=== PATIENT | female | born 1995 | race Caucasian/White ===

== ENCOUNTER → 2016-07-19 | Outpatient (CLI) | payer BC | END | disposition home or self-care (01) | LOC: LABWHC1 10:51 | PROVIDERS: ATTEND Psychiatry & Neurology Neurology | DX: G40.309 Generalized idiopathic epilepsy and epileptic syndromes, not intractable, without status epilepticus (principal) | CPT/HCPCS: 36415; 80175 ==

== ENCOUNTER 2016-10-18 11:21 | Inpatient (IN) | payer BC ==
[2016-10-18] MEDS ORDERED: SODIUM CHLORIDE 0.9% 500 ML IV STA (12:22)
[2016-10-18 12:47] LABS: Appearance,Urine Clear (Clear); Basophils % (A) 0 %; Bilirubin,Urine Negative (Negative); CH 32.2; CHCM 35.1; Eosinophils # (A) 0.1 k/uL (0-0.7); Eosinophils % (A) 1 %; Glucose,Urine (UA) Negative (Negative); HDW 2.66; HGB 11.9 gm/dL (11.4-16.0); Ketones,Urine Negative (Negative); Leukocyte Esterase,Urine Negative (Negative); Luc # (Auto) 0.24; Luc % (Auto) 2; Lymphocytes # (A) 2.2 k/uL (1.0-4.8); Lymphocytes % (A) 16 %; MCH 33.1 pg (25.0-35.0); MCV 92.1 fL (80.0-100.0); Mean Platelet Volume 6.8; Monocytes # (A) 0.9 k/uL (0-1.0); Monocytes % (A) 7 %; Neutrophils # (A) 10.3 k/uL (1.3-7.7); Neutrophils % (A) 75 %; Nitrite,Urine Negative (Negative); PH, Urine 7.5 (5.0-8.0); Protein,Urine Negative (Negative); RBC 3.58 m/uL (3.80-5.40); Specific Gravity,Urine 1.005 (1.001-1.035); UA Billing (MACRO vs. MICRO) CHEM; Urobilinogen,Urine <2.0 mg/dL (<2.0); WBC 13.8 k/uL (3.8-10.6); WBC (Perox) 14.17
[2016-10-18 13:07] LABS: ALT 26 U/L (9-52); AST 19 U/L (14-36); Alkaline Phosphatase 65 U/L (38-126); Anion Gap 6 mmol/L; Blood Urea Nitrogen 7 mg/dL (7-17); Calcium 9.1 mg/dL (8.4-10.2); Carbon Dioxide 19 mmol/L (22-30); Chloride 112 mmol/L (98-107); Glucose 75 mg/dL (74-99); Non-African American GFR(MDRD) >60 (>60 ml/min/1.73 sqM); Potassium 4.5 mmol/L (3.5-5.1); Sodium 137 mmol/L (137-145); Total Bilirubin 0.2 mg/dL (0.2-1.3); Total Protein 6.1 g/dL (6.3-8.2)
[2016-10-18] MEDS ORDERED: lamoTRIgine 25 MG TAB PO ONE (13:23)
[2016-10-18] MEDS ORDERED: NALOXONE 0.4 MG/ML 1 ML VIAL IV PRN (13:59)
--- NOTE | 2016-10-18 14:09 | ED ---
General Adult HPI - General Chief complaint: Seizure Stated complaint: Seizure Time Seen by Provider: 10/18/16 11:59 Source: patient, EMS, RN notes reviewed Mode of arrival: EMS Limitations: no limitations - History of Present Illness Initial comments: 21-year-old female presenting with 10 minute episode of generalized tonic- clonic seizure. This happened 30 minutes to an hour prior to arrival. Patient did fall forward striking her abdomen. She is proximally 7 months . Patient denies headache. Denies abdominal pain. Denies vaginal bleeding. She is currently taking 300 mg of Lamictal twice daily. She denies missing any doses. Denies fever or chills. Patient's reported due date is December 31. Patient states she has been seizure free for the past 3 years. - Related Data Home Medications Medication Instructions Recorded Confirmed lamoTRIgine [LaMICtal] 200 mg PO BID 12/29/15 10/18/16 Folic Acid 1 mg PO BID 10/18/16 10/18/16 Pnv,Calcium 72/Iron/Folic Acid 1 tab PO HS 10/18/16 10/18/16 [ Plus Tablet] lamoTRIgine [LaMICtal] 100 mg PO BID 10/18/16 10/18/16 Allergies Allergy/AdvReac Type Severity Reaction Status Date / Time No Known Allergies Allergy Verified 10/18/16 11:54 Review of Systems ROS Statement: Those systems with pertinent positive or pertinent negative responses have been documented in the HPI. ROS Other: All systems not noted in ROS Statement are negative. Past Medical History Past Medical History: Seizure Disorder History of Any Multi-Drug Resistant Organisms: None Reported Past Surgical History: No Surgical Hx Reported Past Anesthesia/Blood Transfusion Reactions: No Reported Reaction Past Psychological History: No Psychological Hx Reported Smoking Status: Current every day smoker Past Alcohol Use History: Occasional Past Drug Use History: None Reported - Past Family History Mother Family Medical History: Cancer General Exam Limitations: no limitations General appearance: alert, in no apparent distress Head exam: Present: atraumatic, normocephalic Eye exam: Present: normal appearance, PERRL ENT exam: Present: normal exam, mucous membranes moist Neck exam: Present: normal inspection. Absent: meningismus Respiratory exam: Present: normal lung sounds bilaterally, respiratory distress Cardiovascular Exam: Present: regular rate, normal rhythm GI/Abdominal exam: Present: soft. Absent: distended, tenderness, guarding, rebound, rigid Extremities exam: Present: normal capillary refill. Absent: pedal edema Neurological exam: Present: alert, oriented X3, CN II-XII intact. Absent: motor sensory deficit Psychiatric exam: Present: normal affect, normal mood Skin exam: Present: warm, dry Course Vital Signs 10/18/16 10/18/16 11:32 13:40 Temperature 98.3 F 98.3 F Pulse Rate 85 59 L Respiratory 16 18 Rate Blood Pressure 116/58 99/52 O2 Sat by Pulse 95 99 Oximetry - Reevaluation(s) Reevaluation #1: 10/18/16 14:06 Reevaluation the patient remains seizure free, asymptomatic. She has no complaints. Blood pressure is normal. EKG Findings - EKG Comments: EKG Findings:: Normal sinus rhythm, ventricular rate 74, MN interval 132, QRS duration 90, QTC is 452, no ST segment elevation or depression, no T-wave abnormality Medical Decision Making - Medical Decision Making 21-year-old female with known seizure disorder presents with tonic-clonic seizure. Patient is approximately 7 months she did sustain mild abdominal trauma. She has no complaint of abdominal pain at this time. No vaginal bleeding. heart tones obtained in the emergency department are normal. Case is discussed with both obstetrics and neurology. Laboratory studies are reviewed and are unremarkable including normal electrolytes. No elevation in liver enzymes, normal platelets, normal hemoglobin. Patient has no history of preeclampsia. Type and screen is pending at the time of this dictation. Lamictal level is also pending, neurology will follow-up on this. After discussion with obstetrics the patient will present to labor and delivery for a four-hour period of monitoring given her abdominal trauma. After that she will be moved to a medical bed for further neurology evaluation. Neurology recommends increasing the patient's Lamictal dose to 325 mg in the morning, 300 mg in the evening. Patient is given 1 dose of 25 mg in the emergency department. Patient will be placed in observation under internal medicine with both neurology and obstetrics on consult. - Lab Data Result diagrams: 10/18/16 12:31 10/18/16 12:31 Lab Results 10/18/16 10/18/16 10/18/16 Range/Units 12:31 12:31 12:31 WBC 13.8 H (3.8-10.6) k/uL RBC 3.58 L (3.80-5.40) m/uL Hgb 11.9 (11.4-16.0) gm/dL Hct 33.0 L (34.0-46.0) % MCV 92.1 (80.0-100.0) fL MCH 33.1 (25.0-35.0) pg MCHC 36.0 (31.0-37.0) g/dL RDW 13.0 (11.5-15.5) % Plt Count 327 (150-450) k/uL Neutrophils % 75 % Lymphocytes % 16 % Monocytes % 7 % Eosinophils % 1 % Basophils % 0 % Neutrophils # 10.3 H (1.3-7.7) k/uL Lymphocytes # 2.2 (1.0-4.8) k/uL Monocytes # 0.9 (0-1.0) k/uL Eosinophils # 0.1 (0-0.7) k/uL Basophils # 0.0 (0-0.2) k/uL Sodium 137 (137-145) mmol/L Potassium 4.5 (3.5-5.1) mmol/L Chloride 112 H (98-107) mmol/L Carbon Dioxide 19 L (22-30) mmol/L Anion Gap 6 mmol/L BUN 7 (7-17) mg/dL Creatinine 0.65 (0.52-1.04) mg/dL Est GFR (MDRD) Af Amer >60 (>60 ml/min/1.73 sqM) Est GFR (MDRD) Non-Af >60 (>60 ml/min/1.73 sqM) Glucose 75 (74-99) mg/dL Calcium 9.1 (8.4-10.2) mg/dL Total Bilirubin 0.2 (0.2-1.3) mg/dL AST 19 (14-36) U/L ALT 26 (9-52) U/L Alkaline Phosphatase 65 (38-126) U/L Total Protein 6.1 L (6.3-8.2) g/dL Albumin 3.5 (3.5-5.0) g/dL Urine Color Light Yellow Urine Appearance Clear (Clear) Urine pH 7.5 (5.0-8.0) Ur Specific [place] 1.005 (1.001-1.035) Urine Protein Negative (Negative) Urine Glucose (UA) Negative (Negative) Urine Ketones Negative (Negative) Urine Blood Negative (Negative) Urine Nitrite Negative (Negative) Urine Bilirubin Negative (Negative) Urine Urobilinogen <2.0 (<2.0) mg/dL Ur Leukocyte Esterase Negative (Negative) Disposition Clinical Impression: Generalized seizure Disposition: [facility] Condition: Stable Referrals: Kalani Givens MD [Primary Care Provider] - 1-2 days Decision to Admit Reason: Admit from EC Decision Date: 10/18/16 Decision Time: 13:00
[2016-10-18] MEDS ORDERED: lamoTRIgine 100 MG TAB PO SCH (21:00)
--- NOTE | 2016-10-18 21:01 | P.CNNES ---
History of Present Illness Consult date: 10/18/16 Reason for Consult: This patient female admitted with breakthrough seizure. History of Present Illness: This patient is a 21-year-old right-handed white female was brought into the emergency room today for breakthrough seizure. Patient is currently 7 months with her second child. She has a history of underlying seizure disorder and has been taking Lamictal at home twice a day. Patient apparently had a seizure this morning lasting 5-7 minutes in duration. She remembers sitting at the breakfast table having coffee and then only remembers seeing the EMS and ambulance personnel around her. She was brought into the emergency room for further evaluation. Patient was seen in the ER and was back to baseline by the time she was seen in the emergency room at [facility]. She was seen by Dr. Cochran in the ER who noted that she had a normal exam. She told the ER physician that she has been taking Lamictal 300 mg twice a day. On further questioning she denies missing any recent doses. She did mention that she has been missing her regular sleep pattern recently. Apparently she has been stressed with some home situation. 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 We have recommended that she should be seen by her primary care physician in terms of further evaluation whether she is capable to continue working there. Her last Lamictal level was checked in July and was slightly low at 1.9. The patient was advised in July to increase her dose of Lamictal by 25 mg in the morning dose. Patient states she does not remember getting this call in terms of increasing her dosage. For whatever reason she has only been taking 300 mg twice a day. The patient was seen in the ER today and a repeat Lamictal level was drawn. We will need to wait for the actual blood levels to come back from the laboratory. We recommended the patient to increase her limit mental dose to 325 mg in the morning and 300 mg in the evening. She was seen by PROCEDURES NURSE as she did fall onto her tummy and there was concern for any trauma. She was observed in the PROCEDURES NURSE floor and ultrasound and monitoring was all within normal. She was transferred to the medical floor late this afternoon. We have recommended the patient should remain in hospital for at least 1-2 days. She needs to be therapeutic on Lamictal before returning to work. We once again reviewed the [place] driving law and she is well aware of this stating that she cannot drive in the [facility] for appeared of 6 months following her last seizure. The patient does continue to take folic acid and her vitamins. This is her second . We will continue close monitoring of this patient during this admission. We have recommended the patient should increase her dose of Lamictal by Tuesday of this week to 325 mg twice a day. If she is still in the hospital by that time we will increase her dosage during this admission. She should follow-up in the outpatient neurology clinic for further evaluation and possible EEG. We have discussed all of these findings in detail today with the patient. She does mention she has been getting less sleep at night in the last few weeks where normally she would get 8-9 hours she is now only getting 5-6 hours of sleep. We have explained that sleep deprivation also could provoke seizure. We will continue close neurological follow-up with this patient during this admission. We'll await any further recommendations from PROCEDURES NURSE regarding her and further management. Her overall prognosis at this time remains guarded. Review of Systems Constitutional: Denies chills, Denies fever Eyes: denies blurred vision, denies pain Ears, nose, mouth and throat: Denies headache, Denies sore throat Cardiovascular: Denies chest pain, Denies shortness of breath Respiratory: Denies cough Gastrointestinal: Denies abdominal pain, Denies diarrhea, Denies nausea, Denies vomiting Genitourinary: Denies dysuria, Denies hematuria Musculoskeletal: Denies myalgias Integumentary: Denies pruritus, Denies rash Neurological: Denies numbness, Denies weakness Psychiatric: Denies anxiety, Denies depression Endocrine: Denies fatigue, Denies weight change Past Medical History Past Medical History: Seizure Disorder History of Any Multi-Drug Resistant Organisms: None Reported Past Surgical History: No Surgical Hx Reported Past Anesthesia/Blood Transfusion Reactions: No Reported Reaction Past Psychological History: No Psychological Hx Reported Smoking Status: Current every day smoker Past Alcohol Use History: Occasional Past Drug Use History: None Reported - Past Family History Mother Family Medical History: Cancer Medications and Allergies Home Medications Medication Instructions Recorded Confirmed Type lamoTRIgine [LaMICtal] 200 mg PO BID 12/29/15 10/18/16 History Folic Acid 1 mg PO BID 10/18/16 10/18/16 History Pnv,Calcium 72/Iron/Folic Acid 1 tab PO HS 10/18/16 10/18/16 History [ Plus Tablet] lamoTRIgine [LaMICtal] 100 mg PO BID 10/18/16 10/18/16 History Allergies Allergy/AdvReac Type Severity Reaction Status Date / Time No Known Allergies Allergy Verified 10/18/16 15:22 Physical Examination - Vital Signs Vital Signs: Vital Signs Temp Pulse Pulse Resp BP BP Pulse Ox 10/18/16 20:24 98.6 F 69 16 103/64 95 10/18/16 13:40 98.3 F 59 L 18 99/52 99 10/18/16 11:32 98.3 F 85 16 116/58 95 Intake and Output 10/18/16 10/18/16 10/18/16 06:59 14:59 22:59 Intake Total 250 Balance 250 Intake: IV 250 Invasive Line 1 250 Other: Weight 79.379 kg Patient Weight 10/19/16 06:59 Weight 79.379 kg - Constitutional General appearance: average body habitus, cooperative - EENT EENT: PERRL, mucous membranes moist - Respiratory Respiratory: lungs clear, normal breath sounds - Cardiovascular Cardiovascular: regular rate, normal S1, normal S2 Extremities: no peripheral edema bilaterally - Gastrointestinal Gastrointestinal: normoactive bowel sounds - Integumentary Integumentary: normal - Neurologic Cranial nerve examination: PERRL, EOMI, VFF, V1/V2/V3 grossly intact, face symmetric, tongue midline, intact gag reflex, intact corneal reflex, normal palatal elevation Speech examination: intact Sensorimotor examination: intact Detailed motor examination: grossly full strength in all extremities Motor examination - right side: 4/5: biceps, triceps, wrist flexion, wrist extension, community leader, hip flexors, knee extensors, dorsiflexion, toe extension (EHL) , plantarflexion Motor examination - left side: 4/5: biceps, triceps, wrist flexion, wrist extension, community leader, hip flexors, knee extensors, dorsiflexion, toe extension (EHL) , plantarflexion Detailed sensory examination: intact Reflex and gait examination: intact Reflexes: 1+: ankle, bicep, knee, tricep - Musculoskeletal Musculoskeletal: no pain - Psychiatric Psychiatric: mood/affect appropriate, cooperative Results - Laboratory Findings CBC and BMP: 10/18/16 12:31 10/18/16 12:31 Abnormal Lab Findings: Abnormal Labs 10/18/16 10/18/16 12:31 12:31 WBC 13.8 H RBC 3.58 L Hct 33.0 L Neutrophils # 10.3 H Chloride 112 H Carbon Dioxide 19 L Total Protein 6.1 L Assessment and Plan (1) Breakthrough seizure Status: Acute Code(s): G40.919 - EPILEPSY, UNSP, INTRACTABLE, WITHOUT STATUS EPILEPTICUS (2) Generalized tonic-clonic seizure Status: Acute Code(s): G40.409 - OTH GENERALIZED EPILEPSY, NOT INTRACTABLE, W/ O STAT EPI (3) Status: Acute Code(s): Z34.90 - ENCNTR FOR SUPRVSN OF NORMAL , UNSP, UNSP TRIMESTER (4) Sleep deprivation Status: Acute Code(s): Z72.820 - SLEEP DEPRIVATION Plan: This patient is a 21-year-old right-handed white female who is 7 months . She has a history of underlying seizure disorder and has been on Lamictal monotherapy for seizure prophylaxis. Her last Lamictal blood level was slightly subtherapeutic at 1.9 done in July. She was advised to increase her Lamictal dosage to 325 mg in the morning and 300 mg in the evening. Patient unfortunately has only been taking 300 mg twice a day. Patient had a breakthrough seizure today lasting 5-7 minutes in duration. She was brought into the emergency room and was seen by PROCEDURES NURSE. Apparently from the seizure she may have fallen onto her belly. There was no injury to the fetus. She was monitored on the PROCEDURES NURSE cartwright for several hours and then all testing came back normal in terms of fetus pliability. She was and transferred to the medical floor today. Patient is doing well this evening. We had increased heard Lamictal dose in the emergency room to 325 mg in the morning and 300 in the evening. We have recommended that the patient after 48 hours should increase her dose to 325 mg twice a day of Lamictal. The dosage of Lamictal can be increased only slowly to avoid side effects and rash. We will continue to monitor her tonight over the next 24 hours to make sure she has no further breakthrough seizures. 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 She needs to be therapeutic on her Lamictal if she is planning to return to work. Patient is advised of the [place] driving law states she cannot drive and state [facility] for 6 months following a seizure. She is aware of this restriction. We have drawn a Lamictal level this morning and have sent it for testing and will need to recheck tomorrow to see where her level comes back. She may require further adjustment depending on this blood level result. We have discussed with the patient that by Tuesday she should be on higher dose of Lamictal 325 mg twice a day. She will begin on this soon as possible and we will need to get a repeat Lamictal level next week. She will also need a follow-up in the outpatient neurology clinic in one week. Her overall prognosis at this time remains guarded. Time with Patient: Greater than 30
[2016-10-18] MEDS: DEXTROSE 5%-0.45% NACL 1,000 ML IV SCH (21:02)
[2016-10-18] MEDS: lamoTRIgine 100 MG TAB PO SCH (21:03)
--- NOTE | 2016-10-19 08:23 | P.OBCN ---
History of Present Illness Consult date: 10/18/16 Reason for consult: other (292/7 weeks seizure with abdominal trauma) Chief complaint: seizure, 29 2/7 weeks History of present illness: This is a 21 yo that presents to [facility] ED with c/o seizure, she has known seizure disorder and is currently taking lamictal 300mg bid. she has been seizure free for about 3 years now. she states she did hit her abdomen at the time of the seizure. she denies VB, LOF and notes FM. once in the ED all sx from the surgery had resolved. she is a known pt to Dr. Velasquez PMH: epilepsy PSH: none Meds Lamictal 300mg BID PNV Folic Acid OBGYN hx; 1. 2. current allergies NKDA VSS afebrile PE: gen NAD Abd gravid EXT no c/c/e labs per chart nml in nature Assessment/Plan: IUP @ 29 2/7 weeks known seizure disorder on lamictal, neuro on case curently and is adjusting medications as needed will plan on nst q shift, she did extended monitoring per protocol continue with PNV, Folic acid. thank you for the consult will follow Past Medical History Past Medical History: Seizure Disorder Additional Past Medical History / Comment(s): "30 WEEKS " History of Any Multi-Drug Resistant Organisms: None Reported Past Surgical History: No Surgical Hx Reported Past Anesthesia/Blood Transfusion Reactions: No Reported Reaction Smoking Status: Current every day smoker - Past Family History Father Family Medical History: Asthma Mother Family Medical History: Cancer Additional Family Medical History / Comment(s): BREAST CANCER Medications and Allergies Home Medications Medication Instructions Recorded Confirmed Type lamoTRIgine [LaMICtal] 200 mg PO BID 12/29/15 10/18/16 History Folic Acid 1 mg PO BID 10/18/16 10/18/16 History Pnv,Calcium 72/Iron/Folic Acid 1 tab PO HS 10/18/16 10/18/16 History [ Plus Tablet] lamoTRIgine [LaMICtal] 100 mg PO BID 10/18/16 10/18/16 History Allergies Allergy/AdvReac Type Severity Reaction Status Date / Time No Known Allergies Allergy Verified 10/18/16 15:22 Exam Osteopathic Statement: *. No significant issues noted on an osteopathic structural exam other than those noted in the History and Physical/Consult. - Vital Signs Vital signs: Vital Signs Temp Pulse Pulse Resp BP BP Pulse Ox 10/19/16 07:00 99 F 71 14 102/57 99 10/18/16 23:00 97.9 F 73 16 115/68 97 10/18/16 20:24 98.6 F 69 16 103/64 95 10/18/16 13:40 98.3 F 59 L 18 99/52 99 10/18/16 11:32 98.3 F 85 16 116/58 95 Intake and Output 10/18/16 10/19/16 10/19/16 22:59 06:59 14:59 Other: # Voids 2 Results Result Diagrams: 10/18/16 12:31 10/18/16 12:31 Abnormal Lab Results - Last 24 Hours (Table) 10/18/16 10/18/16 Range/Units 12:31 12:31 WBC 13.8 H (3.8-10.6) k/uL RBC 3.58 L (3.80-5.40) m/uL Hct 33.0 L (34.0-46.0) % Neutrophils # 10.3 H (1.3-7.7) k/uL Chloride 112 H (98-107) mmol/L Carbon Dioxide 19 L (22-30) mmol/L Total Protein 6.1 L (6.3-8.2) g/dL
[2016-10-19] MEDS: lamoTRIgine 25 MG TAB PO SCH (08:32)
[2016-10-19] MEDS: lamoTRIgine 100 MG TAB PO SCH ×2 (08:33→20:29)
--- NOTE | 2016-10-19 12:07 | P.HPIM ---
History of Present Illness H&P Date: 10/19/16 Chief Complaint: seizure seizure This is a 21-year-old, 7 month , female who presented to the emergency room with generalized tonic-clonic seizure. Patient is known to have underlying seizure disorder and has been taking Lamictal as prescribed by her neurologist. Apparently her Lamictal dose was increased recently but unfortunately patient did not increase her dose as directed. Her recent Lamictal level was below therapeutic range. She was doing fairly well up until yesterday when she had a generalized tonic-clonic seizure and presented to the emergency room 30 minutes after. Patient said that she does not recall what happened and next thing she knows that she was in the emergency room. Apparently she had the fall forward and landed on her abdomen. She was evaluated in the emergency room by gynecology and currently admitted to the hospital. Lamictal dose was increased. Lamictal level this morning was within therapeutic range. Review of Systems Review of system: 14 points review of systems were obtained and were negative except to what were mentioned in the HPI. Past Medical History Past Medical History: Seizure Disorder Additional Past Medical History / Comment(s): "30 WEEKS " History of Any Multi-Drug Resistant Organisms: None Reported Past Surgical History: No Surgical Hx Reported Past Anesthesia/Blood Transfusion Reactions: No Reported Reaction Smoking Status: Current every day smoker - Past Family History Father Family Medical History: Asthma Mother Family Medical History: Cancer Additional Family Medical History / Comment(s): BREAST CANCER Medications and Allergies Home Medications Medication Instructions Recorded Confirmed Type lamoTRIgine [LaMICtal] 200 mg PO BID 12/29/15 10/18/16 History Folic Acid 1 mg PO BID 10/18/16 10/18/16 History Pnv,Calcium 72/Iron/Folic Acid 1 tab PO HS 10/18/16 10/18/16 History [ Plus Tablet] lamoTRIgine [LaMICtal] 100 mg PO BID 10/18/16 10/18/16 History Allergies Allergy/AdvReac Type Severity Reaction Status Date / Time No Known Allergies Allergy Verified 10/18/16 15:22 Physical Exam Vitals: Vital Signs Temp Pulse Pulse Resp BP BP Pulse Ox 10/19/16 07:00 99 F 71 14 102/57 99 10/18/16 23:00 97.9 F 73 16 115/68 97 10/18/16 20:24 98.6 F 69 16 103/64 95 10/18/16 13:40 98.3 F 59 L 18 99/52 99 Intake and Output 10/18/16 10/19/16 10/19/16 22:59 06:59 14:59 Other: # Voids 2 General: The patient is awake and alert, in no distress Eye: there is normal conjunctiva bilaterally. Neck: The neck is supple, there is no JVD. Cardiovascular: Normal S1-S2, no S3-S4, no murmurs. Respiratory: Lungs clear to auscultation bilaterally Gastrointestinal: Abdomen is soft, nontender. noted Musculoskeletal: There is no pedal edema. Neurological:. Speech is normal. Skin: Skin is warm and dry Results CBC & Chem 7: 10/18/16 12:31 10/18/16 12:31 Labs: Abnormal Lab Results - Last 24 Hours (Table) 10/18/16 10/18/16 Range/Units 12:31 12:31 WBC 13.8 H (3.8-10.6) k/uL RBC 3.58 L (3.80-5.40) m/uL Hct 33.0 L (34.0-46.0) % Neutrophils # 10.3 H (1.3-7.7) k/uL Chloride 112 H (98-107) mmol/L Carbon Dioxide 19 L (22-30) mmol/L Total Protein 6.1 L (6.3-8.2) g/dL Thrombosis Risk Factor Assmnt - Choose All That Apply Any of the Below Risk Factors Present?: Yes Each Factor Represents 1 point: or Other Risk Factors: No Other congenital or acquired thrombophilia - If yes, enter type in comment: No Thrombosis Risk Factor Assessment Total Risk Factor Score: 1 Thrombosis Risk Factor Assessment Level: Low Risk Assessment and Plan Plan: 1. Generalized tonic-clonic seizure 2. Underlying seizure disorder 3. This is a 21-year-old female, approximately 7 month , who presented to the hospital with seizure. Procedure was attributed to subtherapeutic; dose. Patient was seen and evaluated by gynecology and neurology. Lamictal level was increased. Morning Lamictal level were within therapeutic range today. We will continue to monitor closely. Awaiting neurology clearance for discharge possibly tomorrow.
[2016-10-19] MEDS: DEXTROSE 5%-0.45% NACL 1,000 ML IV SCH (17:55)
--- NOTE | 2016-10-19 18:17 | P.PN ---
Subjective This patient is a 21-year-old female with known history of underlying seizure disorder. She is currently 30 weeks and had a breakthrough seizure yesterday. Apparently she was unresponsive and had some generalized tonic- clonic events which are noted by her grandmother at home. She was only admitted to hospital for further evaluation. She was placed on a higher dose of Lamictal as her primary anticonvulsant medication for seizure management. Her Lamictal blood level was drawn yesterday and was reviewed today. Her Lamictal level has come back therapeutic at 3.4. Patient has been started on Lamictal 325 mg in the morning and 300 mg in the evening. A repeat Lamictal level was drawn this morning. We will await those results for tomorrow morning. If she remains therapeutic she may be considered for discharge to home. We have discussed the results of her Lamictal level today with the patient. We suggest she follow-up with her [employer] physician in regards to her and whether she can return to work. She should continue on the higher dose of Lamictal as outlined above. She is to take 325 mg Lamictal in the morning and 300 mg of Lamictal in the evening. She is to follow-up in the outpatient neurology clinic as scheduled next week. We will continue close neurological follow-up of the patient during this admission. Patient was seen by [employer] today. Their recommendations have been noted. Objective - Vital Signs Vital signs: Vital Signs Temp 99.4 F 10/19/16 15:00 Pulse 84 10/19/16 15:00 Resp 16 10/19/16 15:00 BP 119/68 10/19/16 15:00 Pulse Ox 98 10/19/16 15:00 Intake & Output 10/18/16 10/19/16 10/19/16 18:59 06:59 18:59 Intake Total 250 160 Balance 250 160 Weight 79.379 kg Intake: IV 250 Invasive Line 1 250 Intake, IV Titration 160 Amount Dextrose 5%-0.45% NaCl 1, 160 000 ml @ 20 mls/hr IV . Q24H [facility] Rx#:[id number] Other: # Voids 2 - Exam Physical examination: PHYSICAL EXAMINATION: Patient is resting comfortably in bed. VITAL SIGNS: Blood pressure is [120/68]. Heart rate is [84]. Respiration is [16] . Temperature is [99.0]. HEENT: Head is atraumatic, neck is supple, there were no carotid bruits. CHEST: Lungs are clear to auscultation and percussion. CARDIAC: S1, S2 normal rate and rhythm. There is no murmur. ABDOMEN: Soft and nontender. Bowel sounds are present. EXTREMITIES: There is no pedal edema. Peripheral pulses are present. Neurological examination: Patient has a nonfocal neurological exam. - Labs CBC & Chem 7: 10/18/16 12:31 10/18/16 12:31 Assessment and Plan (1) Breakthrough seizure Status: Acute Code(s): G40.919 - EPILEPSY, UNSP, INTRACTABLE, WITHOUT STATUS EPILEPTICUS (2) Generalized tonic-clonic seizure Status: Acute Code(s): G40.409 - OTH GENERALIZED EPILEPSY, NOT INTRACTABLE, W/ O STAT EPI (3) Status: Acute Code(s): Z34.90 - ENCNTR FOR SUPRVSN OF NORMAL , UNSP, UNSP TRIMESTER (4) Sleep deprivation Status: Acute Code(s): Z72.820 - SLEEP DEPRIVATION Plan: This patient is a 21-year-old female who was admitted to hospital with breakthrough seizure. She is on Lamictal for long-term seizure prophylaxis. She had a breakthrough seizure likely secondary to subtherapeutic Lamictal level on admission. She had a repeat Lamictal level done yesterday and the level was verified today and is therapeutic at 3.4. She is to continue on the higher dose of Lamictal at this time. A repeat Lamictal level will be done tomorrow morning. She may be discharged home tomorrow on the higher dose of Lamictal. She is to follow-up in the outpatient neurology clinic as scheduled next week. Patient to discuss with her [employer] her overall status. She is currently 7 months into her . Her return to work is to be reviewed by the [employer] specialist. We will continue close neurological follow- up for the patient. Her overall prognosis at this time remains guarded. Case was discussed at length today with the patient. She was updated on all of the test results. Patient should follow-up as scheduled next week in the outpatient neurology clinic.
[2016-10-20 07:42] VITALS: BP 116/53; PULSE 77; RESP 16; TEMP 98.1
[2016-10-20] MEDS: lamoTRIgine 100 MG TAB PO SCH (08:58)
[2016-10-20] MEDS: lamoTRIgine 25 MG TAB PO SCH (08:58)
--- NOTE | 2016-10-20 11:59 | P.DS ---
Providers Date of admission: 10/19/16 14:51 Expected date of discharge: 10/20/16 Attending physician: Negro Navarro Consults: 10/18/16 13:07 Consult Physician Stat Consulting Provider: Sayra De Anda Consult Reason/Comments: seizure Do you want consulting provider notified?: Already Contacted 10/18/16 13:55 Consult Physician Urgent Consulting Provider: Berna Velasquez Consult Reason/Comments: Abdominal trauma in Do you want consulting provider notified?: Already Contacted Primary care physician: Kalani Givens Hospital Course: 1. Generalized tonic-clonic seizure 2. Underlying seizure disorder 3. This is a 21-year-old female, approximately 7 month , who presented to the hospital with seizure that was attributed to subtherapeutic lamictal dose. Patient was seen and evaluated by gynecology and neurology. Lamictal dose was increased to 325 mg twice daily. Morning Lamictal level were within therapeutic range on 10/19. Patient will be discharged home in a stable condition. She will follow up with neurology in gynecology as scheduled early next week. Patient Condition at Discharge: Stable Plan - Discharge Summary New Discharge Prescriptions: New lamoTRIgine [LaMICtal] 25 mg PO BID #60 tab Continue lamoTRIgine [LaMICtal] 200 mg PO BID Pnv,Calcium 72/Iron/Folic Acid [ Plus Tablet] 1 tab PO HS lamoTRIgine [LaMICtal] 100 mg PO BID Folic Acid 1 mg PO BID Discharge Medication List lamoTRIgine [LaMICtal] 200 mg PO BID 12/29/15 [History] Folic Acid 1 mg PO BID 10/18/16 [History] Pnv,Calcium 72/Iron/Folic Acid [ Plus Tablet] 1 tab PO HS 10/18/16 [ History] lamoTRIgine [LaMICtal] 100 mg PO BID 10/18/16 [History] lamoTRIgine [LaMICtal] 25 mg PO BID #60 tab 10/20/16 [Rx] Follow up Appointment(s)/Referral(s): Kalani Givens MD [Primary Care Provider] - 1-2 days Lolly De Anda MD [STAFF PHYSICIAN] - 1 Week Patient Instructions/Handouts: Nonepileptic Seizures (DC) Activity/Diet/Wound Care/Special Instructions: Regular diet. Discharge Disposition: HOME SELF-CARE
[2016-10-20] MEDS: DEXTROSE 5%-0.45% NACL 1,000 ML IV SCH (15:08)
== END 2016-10-20 14:55 | disposition home or self-care (01) | DRG 775 ==
LOC: EC 11:21 → 4MS4W 13:59 → OBSVTOIN 10-19 14:51
PROVIDERS: ADMIT Internal Medicine; ATTEND Internal Medicine
DX: O99.354 Diseases of the nervous system complicating childbirth (principal); G40.419 Other generalized epilepsy and epileptic syndromes, intractable, without status epilepticus; O99.334 Smoking (tobacco) complicating childbirth; Z3A.30 30 weeks gestation of pregnancy; Z79.899 Other long term (current) drug therapy; Z72.820 Sleep deprivation; Z80.3 Family history of malignant neoplasm of breast; Z82.5 Family history of asthma and other chronic lower respiratory diseases; W19.XXXA Unspecified fall, initial encounter
CPT/HCPCS: 36415; 80053; 80175; 81003; 83735; 85025; 86850; 86900; 86901; 93005; 96360; 99285

== ENCOUNTER 2016-10-18 15:10 | Outpatient (CLI) | payer BC ==
--- NOTE | 2017-01-10 09:39 | P.MSEPDOC ---
Presenting Problems - Arrival Data Date of Arrival on Unit: 10/18/16 Time of Arrival on Unit: 15:15 Medical History - Information : 2 Para: 0 Term: 0 : 0 Abortions: Spontaneous or Elective: 1 Number of Living Children: 0 - Gestational Age Gestational Age by LEE (wks/days): 29 Weeks and 3 Days Disposition - Disposition OB Disposition: Transfer to other dept./facility Transferred to:: [facility] Discharge Date: 10/18/16 Discharge Time: 19:38 I agree with the RN Medical Screening Exam: Yes Risk & Benefit of care provided described in d/c instruction: Yes Diagnosis: RELATED CONDITIONS, UNSPECIFIED, SECOND TRIMESTER
== END 2016-10-18 19:38 | disposition short-term general hospital (02) ==
LOC: FBPOP 15:10
PROVIDERS: ATTEND Obstetrics & Gynecology
DX: O26.93 Pregnancy related conditions, unspecified, third trimester (principal); Z3A.29 29 weeks gestation of pregnancy
CPT/HCPCS: 59025; 99213

== ENCOUNTER 2016-12-20 21:56 | Outpatient (CLI) | payer BC, OTHER ==
[2016-12-20 23:35] VITALS: BP 125/66; PULSE 88; RESP 18; TEMP 96.6
--- NOTE | 2017-01-10 09:08 | P.MSEPDOC ---
Presenting Problems - Arrival Data Date of Arrival on Unit: 12/20/16 Time of Arrival on Unit: 21:56 Mode of Transport: Ambulatory - Complaint OB-Reason for Admission/Chief Complaint: Possible Onset of Labor Comment: Pt states occasional contractions at home and back pain with pressure. C/O being uncomfortable. Medical History - Information : 2 Para: 0 Term: 0 : 0 Abortions: Spontaneous or Elective: 1 Number of Living Children: 0 - Gestational Age Gestational Age by LEE (wks/days): 38 Weeks and 3 Days - History Complications: Other Comment: Hx of epilepsy last seizure was an absence seizure on 12/14/16 Review of Systems - Review of Systems Constitutional: No problems Breast: No problems ENT: No problems Cardiovascular: No problems Respiratory: No problems Gastrointestinal: No problems Genitourinary: No problems Musculoskeletal: No problems Neurological: No problems Skin: No problems Vital Signs - Temperature Temperature: 96.6 F Temperature Source: Temporal Artery Scan - Pulse Right Supine Brachial Pulse Rate: 88 Pulse Assessment Method: Automatic Cuff - Respirations Respiratory Rate: 18 Oxygen Delivery Method: Room Air - Blood Pressure Right Arm Supine Blood Pressure: 125/66 Blood Pressure Mean: 85 Blood Pressure Source: Automatic Cuff Medical Screen Scoring (Pre) - Cervical Exam Dilation: 0 cm = 0 Membranes: Intact - Uterine Contractions Frequency: > 5 minutes apart = 1 - Maternal Vital Signs Maternal Temperature: N/A Maternal Blood Pressure: N/A Signs of Preeclampsia: N/A - Maternal Trauma Maternal Trauma: N/A - Assessment Baseline FHR: 125 Heart Rate - NICHD Category: Category I (Normal) = 0 NST: Reactive - Total Score Total Score (Pre): 1 - Level of Risk Level of Risk: Low (0-5) Physician Notification (Pre) - Physician Notified Physician Notified Date: 12/20/16 Physician Notified Time: 22:45 Physician/Practitioner Notifed:: Dr Velasquez Spoke With: Dr Velasquez New Order Received: Yes - Notification Comment Comment: Reactive NST cervix closed 50% and high, 1 contraction in 45 minutes, Orders to discharge to home and follow up at next scheduled appointment Disposition - Disposition OB Disposition: Discharge to home Transferred to:: Home Discharge Date: 12/20/16 Discharge Time: 22:50 I agree with the RN Medical Screening Exam: Yes Risk & Benefit of care provided described in d/c instruction: Yes Diagnosis: FALSE LABOR AT OR AFTER 37 COMPLETED WEEKS OF GESTATION
== END 2016-12-20 22:50 | disposition home or self-care (01) ==
LOC: FBPOP 21:56
PROVIDERS: ATTEND Obstetrics & Gynecology
DX: O47.1 False labor at or after 37 completed weeks of gestation (principal); Z3A.38 38 weeks gestation of pregnancy
CPT/HCPCS: 59025; 99213

== ENCOUNTER 2016-12-31 10:28 | Inpatient (IN) | payer BC, OTHER ==
[2017-01-04] MEDS ORDERED: SODIUM CHLORIDE 0.9% 100 ML BAG ONE ×2 (02:22→07:04)
[2017-01-04] MEDS ORDERED: fentaNYL (PF) 50 MCG/ML 5 ML AMP ONE ×2 (02:22→07:04)
[2017-01-04] MEDS ORDERED: BUPIVACAINE (PF) 0.25% 30 ML VIAL ONE ×2 (02:22→07:04)
[2017-01-04] MEDS ORDERED: MORPHINE SULFATE (PF) 0.3 MG/0.3 ML SYR ONE (07:04)
[2017-01-04] MEDS ORDERED: OXYTOCIN 10 UNIT/ML 1 ML VIAL ONE (07:04)
[2017-01-04] MEDS ORDERED: ONDANSETRON 4 MG/2 ML VIAL ONE (07:04)
[2017-01-04] MEDS ORDERED: KETOROLAC 30 MG/ML 1 ML VIAL ONE (07:04)
[2017-01-04] MEDS ORDERED: MISOPROSTOL 25 MCG TAB VAGINAL PRN (14:41)
[2017-01-04] MEDS ORDERED: BUTORPHANOL 1 MG/ML 1 ML VIAL IV PRN (14:41)
[2017-01-04] MEDS ORDERED: ZOLPIDEM 5 MG TAB PO PRN (14:41)
[2017-01-04] MEDS ORDERED: LIDOCAINE 1% (PF) 10 MG/ML (30 ML SDV) SQ PRN (14:44)
[2017-01-04] MEDS ORDERED: TERBUTALINE 1 MG/ML VIAL SQ PRN (14:44)
[2017-01-04] MEDS ORDERED: OXYTOCIN 10 UNIT/ML 1 ML VIAL IM PRN (14:44)
[2017-01-04] MEDS ORDERED: METHYLERGONOVINE 0.2 MG/ML 1 ML AMP IM PRN (14:44)
[2017-01-04] MEDS ORDERED: CARBOPROST TROMETHAMINE 250 MCG/ML 1 ML AMP IM PRN (14:44)
[2017-01-04 15:08] LABS: Glucose,Whole Blood 80 mg/dL (75-99)
[2017-01-04] MEDS ORDERED: lamoTRIgine 100 MG TAB PO STA ×2 (15:39)
[2017-01-04] MEDS ORDERED: lamoTRIgine 25 MG TAB PO STA (15:39)
[2017-01-04] MEDS: LACTATED RINGERS 1,000 ML IV SCH ×3 (15:45→21:33)
[2017-01-04 15:46] LABS: Basophils % (A) 0 %; CH 31.1; CHCM 33.1; Eosinophils # (A) 0.1 k/uL (0-0.7); Eosinophils % (A) 1 %; HCT 35.5 % (34.0-46.0); HDW 2.61; Luc # (Auto) 0.29; Luc % (Auto) 3; Lymphocytes # (A) 2.4 k/uL (1.0-4.8); Lymphocytes % (A) 22 %; MCHC 33.9 g/dL (31.0-37.0); MCV 94.3 fL (80.0-100.0); Mean Platelet Volume 7.8; Monocytes # (A) 0.7 k/uL (0-1.0); Monocytes % (A) 7 %; Neutrophils # (A) 7.2 k/uL (1.3-7.7); Neutrophils % (A) 67 %; RBC 3.76 m/uL (3.80-5.40); RDW 13.7 % (11.5-15.5); WBC 10.6 k/uL (3.8-10.6); WBC (Perox) 11.51
--- NOTE | 2017-01-04 15:56 | P.HPOB ---
History of Present Illness H&P Date: 01/04/17 This is a 21-year-old white female 2 para 0010 EDC 12/31/2016 at 40-4/7 weeks' gestation. Patient presents today for Cytotec induction, with an unfavorable cervix. She has a seizure history, followed by Dr. Pappas, see below, last seized in October of this year while . Fetus is been active. She denies vaginal bleeding or fluid leakage. She is admitting to mild irregular uterine contractions. Past medical history is significant for seizure history, since age 10, followed closely by Dr. Pappas. Past surgical history voluntary termination of in the past, first trimester. Current medications folic acid 1 mg daily, limited total 350 mg twice daily, vitamin daily. ALLERGIES none known. Family history is significant for cognitive impairment, breast cancer, asthma, and diabetes. Social history patient is single, father of the baby not involved in the . She smokes approximately one quarter pack tobacco daily. She denies alcohol or drug use. Obstetric history is significant for negative group B strep cultures, blood type A positive, rubella status immune. VDRL testing, urine culture, hepatitis B surface antigen, HIV testing all negative. One-hour Glucola 207 consistent with gestational diabetes. On exam this is a pleasant white female, she is 5 foot 8-1/2 inches, approximately 228 pounds, vital signs are stable and patient is afebrile. The general physical exam is within normal limits. The chest is clear in all enrique. Extremities reveal no edema. The fundus is obviously gravid with a fundal height of 41 cm. Cervix is now fingertip, posterior, -2, vertex, moderate consistency, 50% effaced. Cytotec 25 MCG's is placed in the posterior vaginal vault. heart rate is consistent with reactive NST. Impression: 40-4/7 weeks intrauterine , unfavorable cervix, seizure history followed closely by neurology. Here for Cytotec induction. Plan: We will repeat Cytotec intravaginally every 3 hours 4 doses maximum. Patient will be allowed to rest through the evening, with probable artificial amniorrhexis and oxytocin in the morning. Seizure precautions. I will consult Dr. Pappas for Lamictal adjustment after delivery. Close maternal and surveillance. Anticipate normal spontaneous vaginal delivery. Review of Systems Constitutional: Reports as per HPI Past Medical History Past Medical History: Seizure Disorder Additional Past Medical History / Comment(s): "last seized at 20 wks gestation" History of Any Multi-Drug Resistant Organisms: None Reported Past Surgical History: No Surgical Hx Reported Additional Past Surgical History / Comment(s): VTP Past Anesthesia/Blood Transfusion Reactions: No Reported Reaction Smoking Status: Former smoker - Past Family History Father Family Medical History: Asthma Mother Family Medical History: Cancer Additional Family Medical History / Comment(s): BREAST CANCER Medications and Allergies Home Medications Medication Instructions Recorded Confirmed Type lamoTRIgine [LaMICtal] 200 mg PO BID 12/29/15 12/20/16 History Folic Acid 1 mg PO BID 10/18/16 12/20/16 History Pnv,Calcium 72/Iron/Folic Acid 1 tab PO HS 10/18/16 12/20/16 History [ Plus Tablet] lamoTRIgine [LaMICtal] 100 mg PO BID 10/18/16 12/20/16 History lamoTRIgine [LaMICtal] 25 mg PO BID #60 tab 10/20/16 12/20/16 Rx Allergies Allergy/AdvReac Type Severity Reaction Status Date / Time No Known Allergies Allergy Verified 12/20/16 22:13 Exam - Vital Signs Vital signs: Intake and Output 01/04/17 01/04/17 01/04/17 06:59 14:59 22:59 Other: Weight 101.605 kg Patient Weight 01/05/17 06:59 Weight 101.605 kg See dictation, please Assessment and Plan Plan: Cytotec intravaginally per protocol tonight. Anticipate amniorrhexis and oxytocin in the morning. Close maternal and surveillance. We'll consult Dr. Pappas for her Lamictal adjustment after delivery. All possible scenarios of Cytotec administration reviewed with the patient. Seizure precautions. Time with Patient: Greater than 30
[2017-01-04 19:39] VITALS: BMI 33.0
[2017-01-04] MEDS: lamoTRIgine 100 MG TAB PO SCH (21:15)
[2017-01-04] MEDS: lamoTRIgine 25 MG TAB PO SCH (21:16)
[2017-01-04 21:59] LABS: Hemoglobin A1C 5.7 % (4.2-6.1)
[2017-01-05] MEDS ORDERED: fentaNYL (PF) 50 MCG/ML 5 ML AMP ONE ×2 (02:22→07:04)
[2017-01-05] MEDS ORDERED: SODIUM CHLORIDE 0.9% 100 ML BAG ONE ×2 (02:22→07:04)
[2017-01-05] MEDS ORDERED: BUPIVACAINE (PF) 0.25% 30 ML VIAL ONE ×2 (02:22→07:04)
[2017-01-05] MEDS ORDERED: BUPIVACAINE (PF) 0.25% 25 ML, fentaNYL (PF) 200 MCG in SODIUM CHLORIDE 0.9% 71 ML EPIDURAL ONE (02:36)
[2017-01-05] MEDS: LACTATED RINGERS 1,000 ML IV SCH ×4 (02:50→10:17)
[2017-01-05] MEDS ORDERED: OXYTOCIN 20 UNITS/1000 ML NS 1,000 ML IV SCH (06:00)
[2017-01-05] MEDS ORDERED: ceFAZolin 2 GM in SODIUM CHLORIDE 0.9% 100 ML IVPB STA (06:41)
[2017-01-05] MEDS ORDERED: CITRIC ACID-SODIUM CITRATE 15 ML CUP PO ONE (06:41)
[2017-01-05] MEDS ORDERED: LACTATED RINGERS 1,000 ML IV ONE (06:41)
[2017-01-05] MEDS ORDERED: ONDANSETRON 4 MG/2 ML VIAL ONE (07:04)
[2017-01-05] MEDS ORDERED: KETOROLAC 30 MG/ML 1 ML VIAL ONE (07:04)
[2017-01-05] MEDS ORDERED: MORPHINE SULFATE (PF) 0.3 MG/0.3 ML SYR ONE (07:04)
[2017-01-05] MEDS ORDERED: OXYTOCIN 10 UNIT/ML 1 ML VIAL ONE (07:04)
--- NOTE | 2017-01-05 07:51 | P.OP ---
Date of Procedure: 01/05/17 Preoperative Diagnosis: 40-5/7 weeks intrauterine , gestational diabetes, partial cord prolapse Postoperative Diagnosis: Left occiput transverse liveborn male Procedure(s) Performed: Primary low transverse section Anesthesia: epidural Surgeon: Berna Velasquez Collection Advisor #1: Lo Holm Estimated Blood Loss (ml): 400 IV fluids (ml): 700 Urine output (ml): 300 Pathology: other (Placenta) Condition: stable Disposition: PACU Description of Procedure: Patient was admitted for Cytotec induction for postdates , gestational diabetes, and suspected large for gestational age fetus. She received Cytotec 1 and went into labor. Oxytocin was started at 0400 hrs. In checking the patient's cervix, there was a partial cord prolapse with cord palpated at 2:00. Deep variable decelerations were also noted, decision was made to proceed with primary low transverse section. Patient was brought to the operating room and 2 g of Ancef were given. Vaginal prep was performed. Abdomen was prepped and draped in usual sterile fashion. Epidural was bolused. The appropriate timeout was performed to assure proper patient and procedural identification. Analgesia was checked and noted to be adequate. A low transverse skin incision is made and carried down through the subcutaneous tissue to the fascia. Fascia is isolated, scored and extended bilaterally with curved Smith scissors. Peritoneum is next identified and incised, there is no bowel or bladder involvement. Bladder is very low and well from the operative field and therefore a separate bladder flap was not created. A low transverse uterine incision is made in this is extended bilaterally. Infant's head is delivered in the left occiput transverse position. The oropharynx, nasopharynx, and external nares are all bulb suction. Patient is delivered officially of a liveborn male at 0715 hours. Umbilical cord is doubly clamped and ligated, he is handed to waiting nurses for evaluation where scores of 9 and 9 at one and 5 minutes respectively are given. Placenta is delivered manually, it is inspected and noted to be intact with trivascular cord. Uterus is externalized and massaged. Oxytocin is given. Uterus is swept clean with a sterile sponge to avoid any retained products of conception. Uterus is closed in a two-step fashion, first layer running locking , second layer imbricated for excellent reapproximation and hemostasis. Bilateral tubes and ovaries are inspected and noted to be in the normal range. Abdomen is suctioned with suction on guard and the uterus is gently placed back into the abdominal cavity. Bilateral gutters are inspected and cleaned. Again the operative site is noted to be hemostatically intact. Peritoneum is allowed to close by secondary intention. Fascia is reapproximated in a running stitch of 0 Vicryl with over ligation in the midline. Subcutaneous tissue is irrigated, noted to be clean and dry. It is reapproximated with 3-0 Vicryl in a running fashion. 4-0 Monocryl is used in a subcuticular manner for final skin closure. Steri-Strips and Mastisol are applied to the wound. Uterus is then massaged. Rodriguez is noted to be draining clear urine. All sponge needle and enhancement counts are correct at the end of our procedure. Patient is brought back to recovery room in very good condition with stable vital signs. Patient is requesting circumcision for her son.
[2017-01-05] MEDS: lamoTRIgine 25 MG TAB PO SCH ×2 (09:11→20:58)
[2017-01-05] MEDS: lamoTRIgine 100 MG TAB PO SCH ×2 (09:11→20:57)
[2017-01-05] MEDS ORDERED: ZOLPIDEM 5 MG TAB PO PRN (19:25)
[2017-01-05] MEDS ORDERED: ACETAMINOPHEN TAB 325 MG TAB PO PRN (19:25)
[2017-01-05] MEDS ORDERED: ONDANSETRON 4 MG/2 ML VIAL IVP PRN (19:25)
[2017-01-05] MEDS ORDERED: IBUPROFEN 600 MG TAB PO PRN (19:25)
[2017-01-05] MEDS ORDERED: METOCLOPRAMIDE 5 MG/ML 2 ML VIAL IVP PRN (19:25)
[2017-01-05] MEDS ORDERED: Acetaminophen-Codeine 300-30mg TAB PO PRN ×2 (19:25)
[2017-01-05] MEDS ORDERED: KETOROLAC 30 MG/ML 1 ML VIAL IVP PRN (19:25)
[2017-01-05] MEDS: SENNOSIDES-DOCUSATE SODIUM 1 EACH TAB PO SCH (19:59)
[2017-01-06 07:33] LABS: Basophils % (A) 0 %; CH 31.2; CHCM 32.9; Eosinophils # (A) 0.1 k/uL (0-0.7); Eosinophils % (A) 1 %; HCT 32.6 % (34.0-46.0); HDW 2.51; HGB 10.9 gm/dL (11.4-16.0); Luc # (Auto) 0.28; Luc % (Auto) 3; Lymphocytes # (A) 2.1 k/uL (1.0-4.8); Lymphocytes % (A) 18 %; MCH 31.7 pg (25.0-35.0); MCHC 33.3 g/dL (31.0-37.0); MCV 95.2 fL (80.0-100.0); Mean Platelet Volume 7.8; Monocytes # (A) 0.8 k/uL (0-1.0); Monocytes % (A) 7 %; Neutrophils % (A) 71 %; RBC 3.43 m/uL (3.80-5.40); RDW 13.7 % (11.5-15.5); WBC 11.3 k/uL (3.8-10.6); WBC (Perox) 11.36
--- NOTE | 2017-01-06 08:03 | P.PN ---
Subjective Progress Note Date: 01/06/17 Principal diagnosis: Postoperative day #1 Slept well. Voiding and passing flatus without difficulty. Pain well managed. No complaints Objective - Vital Signs Vital signs: Vital Signs Temp 97.9 F 01/06/17 03:58 Pulse 84 01/06/17 03:58 Resp 16 01/06/17 03:58 BP 110/66 01/06/17 03:58 Pulse Ox 98 01/06/17 03:58 Intake & Output 01/05/17 01/06/17 01/06/17 18:59 06:59 18:59 Output Total 2600 Balance -2600 Output: Urine 2200 Estimated Blood Loss 400 Other: # Voids 1 - Constitutional General appearance: Present: average body habitus, cooperative - EENT Eyes: Present: PERRLA ENT: Present: hearing grossly normal - Neck Neck: Present: normal ROM - Respiratory Respiratory: bilateral: CTA - Cardiovascular Rhythm: regular - Gastrointestinal General gastrointestinal: Present: normal bowel sounds - Genitourinary Genitourinary Comment(s): Abdominal incision clean and dry, intact, well approximated. Fundus firm, midline, symmetric, 18 week size, nontender. - Integumentary Integumentary: Present: normal - Neurologic Neurologic: Present: CNII-XII intact - Musculoskeletal Musculoskeletal: Present: gait normal - Psychiatric Psychiatric: Present: A&O x's 3, appropriate affect, intact judgment & insight - Labs CBC & Chem 7: 01/06/17 07:15 Labs: Abnormal Lab Results - Last 24 Hours (Table) 01/06/17 Range/Units 07:15 WBC 11.3 H (3.8-10.6) k/uL RBC 3.43 L (3.80-5.40) m/uL Hgb 10.9 L (11.4-16.0) gm/dL Hct 32.6 L (34.0-46.0) % Neutrophils # 8.0 H (1.3-7.7) k/uL Assessment and Plan Plan: Continue postoperative care. D/C IV. Awaiting consult per Dr. Pappas for Lamictal adjustments as deemed appropriate. Plan on circumcision tomorrow morning, and possible discharge home tomorrow pending clinical progress. Time with Patient: Less than 30
[2017-01-06] MEDS: SENNOSIDES-DOCUSATE SODIUM 1 EACH TAB PO SCH ×2 (09:07→19:56)
[2017-01-06] MEDS: lamoTRIgine 25 MG TAB PO SCH ×2 (09:08→21:01)
[2017-01-06] MEDS: lamoTRIgine 100 MG TAB PO SCH ×2 (09:19→21:00)
--- NOTE | 2017-01-06 18:12 | P.CNNES ---
History of Present Illness Consult date: 01/06/17 Reason for Consult: Patient with recent and has history of seizure disorder. History of Present Illness: This patient is a 21-year-old right-handed white female who is seen today on the [facility] after recently undergoing a section for delivery of her baby boy. Patient underwent yesterday morning at 7: 15 AM and delivered a healthy baby boy. Neurology was consulted for further evaluation and management of her known history of underlying seizure disorder. The patient has been treated for underlying seizure disorder and has been using Lamictal monotherapy as her primary anticonvulsant medication. She has undergone extensive evaluation of her recent and has been followed closely in the neurology outpatient clinic for her seizure disorder. Her last seizure was in October. She has been taking Lamictal monotherapy as her primary treatment for seizure prophylaxis. Her last Lamictal level done earlier in December was therapeutic. She was electively admitted to Hospital for section and delivery of her baby boy. She underwent successful C- section yesterday. Today she is resting very comfortably and has had no episodes of seizure activity since coming into the hospital. She is currently on Lamictal 350 mg twice a day. This is the dose that has been adequately keeping her in May therapeutic range on Lamictal. She underwent a Lamictal blood test yesterday morning and the results came back therapeutic at 2.0 today. We are recommending the patient should be maintained on her current dose of Lamictal 350 mg twice a day. We would recommend a repeat Lamictal level to be done in a week after she is discharged from hospital. The patient had no complications from her . She denies any headache or focal weakness. We have recommended that she should be restarted on folic acid and a prescription will be called into her pharmacy. Apparently she ran out of both [facility] about a week ago. The patient otherwise seems to be doing excellent following her recent section. She denies any headache or focal weakness. We are recommending that she schedule follow-up in the outpatient neurology clinic in 2-3 weeks. The patient otherwise seems to be coming along very well. She states her physician is planning to possibly discharge her home tomorrow. Neurology is now been consulted for further evaluation and recommendations. Review of Systems Constitutional: Denies chills, Denies fever Eyes: denies blurred vision, denies pain Ears, nose, mouth and throat: Denies headache, Denies sore throat Cardiovascular: Denies chest pain, Denies shortness of breath Respiratory: Denies cough Gastrointestinal: Denies abdominal pain, Denies diarrhea, Denies nausea, Denies vomiting Genitourinary: Denies dysuria, Denies hematuria Musculoskeletal: Denies myalgias Integumentary: Denies pruritus, Denies rash Neurological: Reports convulsions, Reports seizures, Denies numbness, Denies weakness Psychiatric: Denies anxiety, Denies depression Endocrine: Denies fatigue, Denies weight change Past Medical History Past Medical History: Seizure Disorder Additional Past Medical History / Comment(s): "last seized at 20 wks gestation" History of Any Multi-Drug Resistant Organisms: None Reported Past Surgical History: No Surgical Hx Reported Additional Past Surgical History / Comment(s): VTP Past Anesthesia/Blood Transfusion Reactions: No Reported Reaction Smoking Status: Former smoker - Past Family History Father Family Medical History: Asthma Mother Family Medical History: Cancer Additional Family Medical History / Comment(s): BREAST CANCER Medications and Allergies Home Medications Medication Instructions Recorded Confirmed Type lamoTRIgine [LaMICtal] 200 mg PO BID 12/29/15 12/20/16 History Folic Acid 1 mg PO BID 10/18/16 12/20/16 History Pnv,Calcium 72/Iron/Folic Acid 1 tab PO HS 10/18/16 12/20/16 History [ Plus Tablet] lamoTRIgine [LaMICtal] 100 mg PO BID 10/18/16 12/20/16 History lamoTRIgine [LaMICtal] 25 mg PO BID #60 tab 10/20/16 12/20/16 Rx Allergies Allergy/AdvReac Type Severity Reaction Status Date / Time No Known Allergies Allergy Verified 12/20/16 22:13 Physical Examination - Vital Signs Vital Signs: Vital Signs Temp Pulse Resp BP Pulse Ox 01/06/17 08:00 98.4 F 73 14 110/68 01/06/17 03:58 97.9 F 84 16 110/66 98 01/06/17 00:00 97.9 F 82 16 113/62 01/05/17 20:00 97.5 F L 79 16 110/55 01/05/17 15:18 98 F 74 16 119/57 Intake and Output 01/05/17 01/06/1701/06/17 22:59 06:59 14:59 Output Total 1800 Balance -1800 Output: Urine 1800 Other: # Voids 1 - Constitutional General appearance: average body habitus, cooperative - EENT EENT: PERRL, mucous membranes moist - Respiratory Respiratory: lungs clear, normal breath sounds - Cardiovascular Cardiovascular: regular rate, normal S1, normal S2 Extremities: no peripheral edema bilaterally - Gastrointestinal Gastrointestinal: normoactive bowel sounds - Integumentary Integumentary: normal - Neurologic Cranial nerve examination: PERRL, EOMI, VFF, V1/V2/V3 grossly intact, face symmetric, tongue midline, intact shoulder shrug, intact gag reflex, intact corneal reflex, normal palatal elevation Speech examination: intact Sensorimotor examination: intact Detailed motor examination: grossly full strength in all extremities Motor examination - right side: 5/5: biceps, triceps, wrist flexion, wrist extension, field service manager, hip flexors, knee extensors, dorsiflexion, toe extension (EHL) , plantarflexion Motor examination - left side: 5/5: biceps, triceps, wrist flexion, wrist extension, field service manager, hip flexors, knee extensors, dorsiflexion, toe extension (EHL) , plantarflexion Detailed sensory examination: intact Reflex and gait examination: intact Reflexes: 1+: ankle, bicep, knee, tricep - Musculoskeletal Musculoskeletal: no pain - Psychiatric Psychiatric: mood/affect appropriate, cooperative Results - Laboratory Findings CBC and BMP: 01/06/17 07:15 Abnormal Lab Findings: Abnormal Labs 01/04/17 01/06/17 14:30 07:15 WBC 11.3 H RBC 3.76 L 3.43 L Hgb 10.9 L Hct 32.6 L Neutrophils # 8.0 H Assessment and Plan (1) Delivery by section of full-term infant Status: Acute Code(s): O82 - ENCOUNTER FOR DELIVERY WITHOUT INDICATION (2) Generalized tonic-clonic seizure Status: Acute Code(s): G40.409 - OTH GENERALIZED EPILEPSY, NOT INTRACTABLE, W/ O STAT EPI Plan: This patient is a pleasant 21-year-old right-handed white female who delivered by section a full-term baby boy yesterday. She has a known history of underlying seizure disorder for which she has been taking Lamictal monotherapy. Her Lamictal level done yesterday came back therapeutic at 2.0. We're recommending she be maintained on her current dose of Lamictal 350 mg twice a day. We would recommend a repeat Lamictal blood level to be done 1 week. Her neurological examination today on the [facility] floor is within normal limits for her age. She seems to be doing very well following her recent delivery. She may follow-up in the outpatient neurology clinic in 2-3 weeks. As mentioned the patient should be maintained on her current dose of Lamictal 350 mg by mouth twice a day. We would recommend that she be restarted on Folic Acid 1 mg daily. Her neurological examination is nonfocal at this time. She may follow- up in the outpatient neurology clinic in 2-3 weeks. Patient is scheduled for discharge possibly tomorrow morning. We will continue close neurological follow -up for this patient during this admission. Thank you Dr. Velasquez for allowing me to participate in the care of this patient. We will continue to monitor her progress very closely with you. Time with Patient: Greater than 30
--- NOTE | 2017-01-06 20:22 | P.PN ---
Progress Note - Text Date:ime:2025 Patient is status post with an epidural.postoperatively the epidural was dosed with 3 mg of Duramorph. Patient seen this evening with VAS score of 2.no c/o of pruritus, no c/o nausea/vomiting, comfortable and doing well.
[2017-01-07 08:27] VITALS: BP 129/79; PULSE 76; RESP 18; TEMP 98.4
[2017-01-07] MEDS: SENNOSIDES-DOCUSATE SODIUM 1 EACH TAB PO SCH (09:26)
[2017-01-07] MEDS: lamoTRIgine 100 MG TAB PO SCH (09:26)
[2017-01-07] MEDS: lamoTRIgine 25 MG TAB PO SCH (09:26)
--- NOTE | 2017-02-14 23:30 | DS ---
DISCHARGE SUMMARY ADMITTING DIAGNOSES: 1. 40 and 5/7 weeks intrauterine . 2. Gestational diabetes. 3. Unfavorable cervix. 4. Uncontrolled seizure history. DISCHARGE DIAGNOSES: 1. Status post primary low transverse section for partial cord prolapse. 2. Admitting diagnoses as noted above. This is a 21-year-old, white female, 1, para 0, who was admitted at 40 and 5/7 weeks intrauterine for induction. Her was remarkable for gestational diabetes, as well as uncontrolled seizure disorder, followed by Dr. De Anda. The patient received Cytotec intravaginally and then artificial amniorrhexis. Oxytocin was started and titrated. A partial cord prolapse was noted and she underwent a primary low transverse section. She gave to a live born male infant, who weighed 8 pounds, 8 ounces. She did well intraoperatively with normal-appearing tubes and ovaries noted. Please see dictated operative note for details. Dr. De Anda was consulted and Lamictal levels were redrawn and followed. Adjustments to the medications had been provided. had been circumcised. The patient went home in very good condition with instructions to follow up with me in the office in 2 weeks. Her incision appeared clean and dry, minimal lochia rubra, perineal body clean and dry, breasts nonengorged. Patient is not breast-feeding. She is reminded no intercourse, tampons, or douching. She will follow up with Dr. De Anda as per his recommendation, and her infant will follow up with the audit tech as recommended as well. She is reminded to call with any fever, shakes or chills, foul-smelling or copious lochia, with the passage of large blood clots, with any seizure activities, with any pain not alleviated by [id number] Motrin products. She will use ibuprofen, 200 mg pills, 3 every 6 hours as needed. MMODL / IJN: [id number] /
== END 2017-01-07 12:30 | disposition home or self-care (01) | DRG 765 ==
LOC: 4FBP 01-04 13:59
PROVIDERS: ADMIT Obstetrics & Gynecology; ATTEND Obstetrics & Gynecology
PROC: 3E033VJ Introduction of Other Hormone into Peripheral Vein, Percutaneous Approach (ICD-10-PCS; 2017-01-04)
PROC: 3E0R3NZ Introduction of Analgesics, Hypnotics, Sedatives into Spinal Canal, Percutaneous Approach (ICD-10-PCS; 2017-01-05)
PROC: 00HU33Z Insertion of Infusion Device into Spinal Canal, Percutaneous Approach (ICD-10-PCS; 2017-01-05)
PROC: 10D00Z1 Extraction of Products of Conception, Low, Open Approach (ICD-10-PCS; principal; 2017-01-05 06:30)
DX: O48.0 Post-term pregnancy (principal); O99.354 Diseases of the nervous system complicating childbirth; G40.409 Other generalized epilepsy and epileptic syndromes, not intractable, without status epilepticus; O99.334 Smoking (tobacco) complicating childbirth; F17.200 Nicotine dependence, unspecified, uncomplicated; O24.429 Gestational diabetes mellitus in childbirth, unspecified control; O69.0XX0 Labor and delivery complicated by prolapse of cord, not applicable or unspecified; O64.0XX0 Obstructed labor due to incomplete rotation of fetal head, not applicable or unspecified; O36.63X0 Maternal care for excessive fetal growth, third trimester, not applicable or unspecified; O76 Abnormality in fetal heart rate and rhythm complicating labor and delivery; Z37.0 Single live birth; Z82.5 Family history of asthma and other chronic lower respiratory diseases; Z83.3 Family history of diabetes mellitus; Z80.3 Family history of malignant neoplasm of breast; Z3A.40 40 weeks gestation of pregnancy; Z79.899 Other long term (current) drug therapy
CPT/HCPCS: 80175; 83036; 85025; 88307

== ENCOUNTER → 2017-03-22 | Outpatient (CLI) | payer BC | END | disposition home or self-care (01) | LOC: LABWHC1 10:20 | PROVIDERS: ATTEND Psychiatry & Neurology Neurology | DX: G40.309 Generalized idiopathic epilepsy and epileptic syndromes, not intractable, without status epilepticus (principal) | CPT/HCPCS: 36415; 80175 ==

== ENCOUNTER 2017-08-23 21:24 | Inpatient (IN) | payer BC, OTHER ==
[2017-08-23] MEDS ORDERED: KETOROLAC 30 MG/ML 1 ML VIAL IVP STA (22:59)
[2017-08-23] MEDS ORDERED: SODIUM CHLORIDE 0.9% 1,000 ML IV STA (22:59)
--- NOTE | 2017-08-23 23:02 | ED ---
Abdominal Pain HPI - General Chief Complaint: Abdominal Pain Stated Complaint: abdominal & back pain Time Seen by Provider: 08/23/17 22:47 Source: patient Mode of arrival: ambulatory Limitations: no limitations - History of Present Illness Initial Comments: 22-year-old female patient presents to the emergency department today for complaints of upper abdominal pain that radiates into her back. Patient states it is an intense severe pain. Patient states that she did vomit one time yesterday. States this has been going on since Tuesday. States that it comes on mostly at night. Patient states she has been eating fried food for dinner. Denies any constipation or diarrhea. Denies any hematuria, dysuria, urinary frequency, urinary urgency. She denies any chance of . Denies any constipation or diarrhea. Denies any history of similar pain. Patient denies any recent rash, fever, chills, shortness breath, chest pain, numbness, tingling , dizziness, weakness, headache, visual changes, or any other complaints. Only previous abdominal surgery was . - Related Data Home Medications Medication Instructions Recorded Confirmed lamoTRIgine [LaMICtal] 200 mg PO BID 12/29/15 08/23/17 Folic Acid 1 mg PO BID 10/18/16 08/23/17 lamoTRIgine [LaMICtal] 100 mg PO BID 10/18/16 08/23/17 Previous Rx's Medication Instructions Recorded lamoTRIgine [LaMICtal] 25 mg PO BID #60 tab 10/20/16 Allergies Allergy/AdvReac Type Severity Reaction Status Date / Time No Known Allergies Allergy Verified 08/23/17 22:55 Review of Systems ROS Statement: Those systems with pertinent positive or pertinent negative responses have been documented in the HPI. ROS Other: All systems not noted in ROS Statement are negative. Past Medical History Past Medical History: Seizure Disorder Additional Past Medical History / Comment(s): "last seized at 20 wks gestation" History of Any Multi-Drug Resistant Organisms: None Reported Past Surgical History: No Surgical Hx Reported Additional Past Surgical History / Comment(s): VTP Past Anesthesia/Blood Transfusion Reactions: No Reported Reaction Past Psychological History: No Psychological Hx Reported Smoking Status: Former smoker Past Alcohol Use History: None Reported Past Drug Use History: None Reported - Past Family History Father Family Medical History: Asthma Mother Family Medical History: Cancer Additional Family Medical History / Comment(s): BREAST CANCER General Exam Limitations: no limitations General appearance: alert, in no apparent distress, other (This is a well- developed, well-nourished adult female patient in no acute distress. Vital signs upon presentation are temperature 97.7F, pulse 83, respiration 16, blood pressure 130/88, pulse ox 100% on room air.) Eye exam: Present: normal appearance, PERRL, EOMI. Absent: scleral icterus, conjunctival injection, periorbital swelling ENT exam: Present: normal exam, normal oropharynx, mucous membranes moist Respiratory exam: Present: normal lung sounds bilaterally. Absent: respiratory distress, wheezes, rales, rhonchi, stridor Cardiovascular Exam: Present: regular rate, normal rhythm, normal heart sounds. Absent: systolic murmur, diastolic murmur, rubs, gallop, clicks GI/Abdominal exam: Present: soft, tenderness (Left upper quadrant, midepigastric , and right upper quadrant tenderness.), normal bowel sounds. Absent: distended , guarding, rebound, rigid Back exam: Present: normal inspection. Absent: CVA tenderness (R), CVA tenderness (L) Neurological exam: Present: alert, oriented X3, CN II-XII intact Psychiatric exam: Present: normal affect, normal mood Skin exam: Present: warm, dry, intact, normal color. Absent: rash Course Vital Signs 08/23/17 21:34 Temperature 97.7 F Pulse Rate 83 Respiratory 16 Rate Blood Pressure 130/88 O2 Sat by Pulse 100 Oximetry Medical Decision Making - Medical Decision Making 22-year-old female patient presents to the emergency department today for complaints of upper abdominal pain that radiates into her back. Worsening over the last 3 days. Physical examination did reveal upper abdominal tenderness. Labs were reviewed and did show elevated white blood cell count liver enzymes. Ultrasound of the abdomen was obtained which did show possibly thickened gallbladder wall which is suspicious for cholecystitis. Given patient's symptoms, labs, and ultrasound we will admit to Dr. Santillan. Pain and nausea management will be provided. - Lab Data Result diagrams: 08/23/17 23:11 08/23/17 23:11 Lab Results 08/23/17 08/23/17 08/23/17 Range/Units 23:11 23:11 23:11 WBC 14.7 H (3.8-10.6) k/uL RBC 4.63 (3.80-5.40) m/uL Hgb 14.4 (11.4-16.0) gm/dL Hct 41.7 (34.0-46.0) % MCV 90.2 (80.0-100.0) fL MCH 31.1 (25.0-35.0) pg MCHC 34.4 (31.0-37.0) g/dL RDW 12.9 (11.5-15.5) % Plt Count 289 (150-450) k/uL Neutrophils % 76 % Lymphocytes % 16 % Monocytes % 6 % Eosinophils % 1 % Basophils % 0 % Neutrophils # 11.2 H (1.3-7.7) k/uL Lymphocytes # 2.3 (1.0-4.8) k/uL Monocytes # 0.9 (0-1.0) k/uL Eosinophils # 0.2 (0-0.7) k/uL Basophils # 0.0 (0-0.2) k/uL Sodium 144 (137-145) mmol/L Potassium 4.5 (3.5-5.1) mmol/L Chloride 106 (98-107) mmol/L Carbon Dioxide 24 (22-30) mmol/L Anion Gap 14 mmol/L BUN 15 (7-17) mg/dL Creatinine 0.94 (0.52-1.04) mg/dL Est GFR (CKD-EPI)AfAm >90 (>60 ml/min/1.73 sqM) Est GFR (CKD-EPI)NonAf 86 (>60 ml/min/1.73 sqM) Glucose 99 (74-99) mg/dL Calcium 10.0 (8.4-10.2) mg/dL Total Bilirubin 0.4 (0.2-1.3) mg/dL AST 89 H (14-36) U/L ALT 63 H (9-52) U/L Alkaline Phosphatase 68 (38-126) U/L Total Protein 7.2 (6.3-8.2) g/dL Albumin 4.5 (3.5-5.0) g/dL Amylase 49 (30-110) U/L Lipase 62 (23-300) U/L Urine Color Urine Appearance (Clear) Urine pH (5.0-8.0) Ur Specific [place] (1.001-1.035) Urine Protein (Negative) Urine Glucose (UA) (Negative) Urine Ketones (Negative) Urine Blood (Negative) Urine Nitrite (Negative) Urine Bilirubin (Negative) Urine Urobilinogen (<2.0) mg/dL Ur Leukocyte Esterase (Negative) Urine RBC (0-5) /hpf Urine WBC (0-5) /hpf Ur Squamous Epith Cells (0-4) /hpf Urine Bacteria (None) /hpf Urine Mucus (None) /hpf Urine HCG, Qual Not Detected (Not Detectd) 08/23/17 Range/Units 23:11 WBC (3.8-10.6) k/uL RBC (3.80-5.40) m/uL Hgb (11.4-16.0) gm/dL Hct (34.0-46.0) % MCV (80.0-100.0) fL MCH (25.0-35.0) pg MCHC (31.0-37.0) g/dL RDW (11.5-15.5) % Plt Count (150-450) k/uL Neutrophils % % Lymphocytes % % Monocytes % % Eosinophils % % Basophils % % Neutrophils # (1.3-7.7) k/uL Lymphocytes # (1.0-4.8) k/uL Monocytes # (0-1.0) k/uL Eosinophils # (0-0.7) k/uL Basophils # (0-0.2) k/uL Sodium (137-145) mmol/L Potassium (3.5-5.1) mmol/L Chloride (98-107) mmol/L Carbon Dioxide (22-30) mmol/L Anion Gap mmol/L BUN (7-17) mg/dL Creatinine (0.52-1.04) mg/dL Est GFR (CKD-EPI)AfAm (>60 ml/min/1.73 sqM) Est GFR (CKD-EPI)NonAf (>60 ml/min/1.73 sqM) Glucose (74-99) mg/dL Calcium (8.4-10.2) mg/dL Total Bilirubin (0.2-1.3) mg/dL AST (14-36) U/L ALT (9-52) U/L Alkaline Phosphatase (38-126) U/L Total Protein (6.3-8.2) g/dL Albumin (3.5-5.0) g/dL Amylase (30-110) U/L Lipase (23-300) U/L Urine Color Yellow Urine Appearance Clear (Clear) Urine pH 6.0 (5.0-8.0) Ur Specific [place] 1.028 (1.001-1.035) Urine Protein 1+ H (Negative) Urine Glucose (UA) Negative (Negative) Urine Ketones Negative (Negative) Urine Blood Negative (Negative) Urine Nitrite Negative (Negative) Urine Bilirubin Negative (Negative) Urine Urobilinogen 2.0 (<2.0) mg/dL Ur Leukocyte Esterase Negative (Negative) Urine RBC 10 H (0-5) /hpf Urine WBC 2 (0-5) /hpf Ur Squamous Epith Cells 1 (0-4) /hpf Urine Bacteria Occasional H (None) /hpf Urine Mucus Many H (None) /hpf Urine HCG, Qual (Not Detectd) - Radiology Data Radiology results: report reviewed Ultrasound of the abdomen was obtained. Report was reviewed in its entirety. Impression by Dr. Torres shows multiple small gallstones. Minimal gallbladder wall thickening suspicious for cholecystitis. No dilated ducts. Disposition Clinical Impression: Cholecystitis Disposition: [facility] Condition: Serious Referrals: Kalani Givens MD [Primary Care Provider] - 1-2 days Decision to Admit Reason: Admit from EC Decision Date: 08/24/17 Decision Time: 00:59
[2017-08-23 23:20] LABS: Basophils % (A) 0 %; Eosinophils # (A) 0.2 k/uL (0-0.7); Eosinophils % (A) 1 %; HCT 41.7 % (34.0-46.0); HGB 14.4 gm/dL (11.4-16.0); Lymphocytes # (A) 2.3 k/uL (1.0-4.8); Lymphocytes % (A) 16 %; MCH 31.1 pg (25.0-35.0); MCHC 34.4 g/dL (31.0-37.0); MCV 90.2 fL (80.0-100.0); Mean Platelet Volume 6.8; Monocytes # (A) 0.9 k/uL (0-1.0); Monocytes % (A) 6 %; Neutrophils # (A) 11.2 k/uL (1.3-7.7); Neutrophils % (A) 76 %; Platelet Count 289 k/uL (150-450); RBC 4.63 m/uL (3.80-5.40); RDW 12.9 % (11.5-15.5); WBC 14.7 k/uL (3.8-10.6)
[2017-08-23 23:27] LABS: Appearance,Urine Clear (Clear); Bacteria,Urine Occasional /hpf; Bilirubin,Urine Negative (Negative); Blood,Urine Negative (Negative); Color,Urine Yellow; Glucose,Urine (UA) Negative (Negative); Ketones,Urine Negative (Negative); Leukocyte Esterase,Urine Negative (Negative); Mucus,Urine Many /hpf; Nitrite,Urine Negative (Negative); Protein,Urine 1+ (Negative); RBC,Urine 10 /hpf (0-5); Specific Gravity,Urine 1.028 (1.001-1.035); Squamous Epithelial Cell,Urine 1 /hpf (0-4); WBC,Urine 2 /hpf (0-5)
[2017-08-23 23:31] LABS: ALT 63 U/L (9-52); AST 89 U/L (14-36); Albumin 4.5 g/dL (3.5-5.0); Alkaline Phosphatase 68 U/L (38-126); Amylase 49 U/L (30-110); Anion Gap 14 mmol/L; Blood Urea Nitrogen 15 mg/dL (7-17); Carbon Dioxide 24 mmol/L (22-30); Chloride 106 mmol/L (98-107); Glucose 99 mg/dL (74-99); Lipase 62 U/L (23-300); Potassium 4.5 mmol/L (3.5-5.1); Sodium 144 mmol/L (137-145); Total Bilirubin 0.4 mg/dL (0.2-1.3); Total Protein 7.2 g/dL (6.3-8.2)
[2017-08-23] MEDS ORDERED: lamoTRIgine 100 MG TAB PO STA ×2 (23:35)
[2017-08-23] MEDS ORDERED: lamoTRIgine 25 MG TAB PO STA (23:36)
[2017-08-23] MEDS: ONDANSETRON 4 MG/2 ML VIAL IVP STA (23:39)
--- NOTE | 2017-08-24 00:28 | US ---
EXAMINATION TYPE: US abdomen limited DATE OF EXAM: 08/23/2017 COMPARISON: NONE CLINICAL HISTORY: Upper abdominal pain; Elevated Liver enzymes. Abdomen pain and N/V x couple days EXAM MEASUREMENTS: Liver Length: 19.1 cm Gallbladder Wall: 0.2 cm CBD: 0.5 cm Right Kidney: 10.9 x 4.5 x 5.4 cm Pancreas: visualized portions wnl, tail limited by overlying midline bowel gas Liver: enlarged at 19.1cm Gallbladder: appears hydropic measuring 11.3cm in length, multiple small echogenic shadowing foci, w all measures wnl Evidence for sonographic Cuadra's sign: yes CBD: wnl Right Kidney: wnl IMPRESSION: There are multiple small gallstones. Minimal gallbladder wall thickening is suspicious fo r cholecystitis. No dilated ducts.
[2017-08-24] MEDS ORDERED: ONDANSETRON 4 MG/2 ML VIAL IVP PRN (00:55)
[2017-08-24] MEDS ORDERED: NALOXONE 0.4 MG/ML 1 ML VIAL IV PRN (00:55)
[2017-08-24] MEDS ORDERED: AMPICILLIN-SULBACTAM 3 GM in SODIUM CHLORIDE 0.9% 100 ML IVPB STA (01:05)
[2017-08-24] MEDS: SODIUM CHLORIDE 0.9% 1,000 ML IV SCH ×4 (02:07→16:39)
[2017-08-24 02:41] VITALS: BMI 27.8
[2017-08-24] MEDS: lamoTRIgine 100 MG TAB PO SCH ×2 (08:12→20:52)
[2017-08-24] MEDS: lamoTRIgine 25 MG TAB PO SCH ×2 (08:13→20:52)
[2017-08-24] MEDS ORDERED: lamoTRIgine 25 MG TAB PO SCH ×2 (09:00)
[2017-08-24] MEDS ORDERED: NON-FORMULARY DRUG (Lamotrigine [Lamictal] 200 MG) PO SCH (09:00)
[2017-08-24] MEDS: AMPICILLIN-SULBACTAM 3 GM in SODIUM CHLORIDE 0.9% 100 ML IVPB SCH ×3 (09:14→23:56)
[2017-08-24] MEDS ORDERED: MORPHINE SULFATE 4 MG/ML SYRINGE IVP PRN (09:52)
[2017-08-24] MEDS ORDERED: ACETAMINOPHEN IV (For NPO) 1,000 MG in EMPTY BAG 1 BAG IVPB STA (10:23)
--- NOTE | 2017-08-24 11:47 | P.GSHP ---
History of Present Illness H&P Date: 08/24/17 22-year-old female presented on the day of admission to the emergency room to be evaluated for a chief complaint of developing mid epigastric pain radiating bilaterally across the upper back. Patient stated that she had several episodes over the last several days of this type of pain. been getting more symptomatic more severe. Patient stated that she noted that when she ate fried food for dinner the night before that she developed midepigastric pain felt nauseated did vomit came into the emergency room to be evaluated for the above- mentioned symptoms. Patient denied any fever chills shortness of breath chest pain or difficulty in urinating. prior surgical history otherwise unremarkable. Past medical history seizure disorder in which she's followed by a neurologist on Lamictal. In the emergency room ultrasound of the abdomen showed multiple small gallstones minimal gallbladder wall thickening suspicious for cholecystitis no dilated common bile duct subsequent the patient was admitted to the services of the attending - Review of Systems Comment: Essentially unremarkable except as mentioned in the present illness Past Medical History Past Medical History: Seizure Disorder Additional Past Medical History / Comment(s): 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" History of Any Multi-Drug Resistant Organisms: None Reported Past Surgical History: Section Additional Past Surgical History / Comment(s): VTP Past Anesthesia/Blood Transfusion Reactions: No Reported Reaction Past Psychological History: No Psychological Hx Reported Smoking Status: Current some day smoker Past Alcohol Use History: None Reported Additional Past Alcohol Use History / Comment(s): 1 pack per week per pt Past Drug Use History: None Reported Additional Drug Use History / Comment(s): DENIES ANY PAST OR CURENT DRUG USE. - Past Family History Father Family Medical History: Asthma Mother Family Medical History: Cancer Additional Family Medical History / Comment(s): BREAST CANCER Medications and Allergies Home Medications Medication Instructions Recorded Confirmed Type lamoTRIgine [LaMICtal] 200 mg PO BID 12/29/15 08/23/17 History Folic Acid 1 mg PO BID 10/18/16 08/23/17 History lamoTRIgine [LaMICtal] 100 mg PO BID 10/18/16 08/23/17 History lamoTRIgine [LaMICtal] 25 mg PO BID #60 tab 10/20/16 08/23/17 Rx lamoTRIgine [LaMICtal] 25 mg PO BID 08/24/17 08/24/17 History Allergies Allergy/AdvReac Type Severity Reaction Status Date / Time No Known Allergies Allergy Verified 08/24/17 02:41 Surgical - Exam Vital Signs Temp Pulse Resp BP Pulse Ox 97.7 F 83 16 130/88 100 08/23/17 21:34 08/23/17 21:34 08/23/17 21:34 08/23/17 21:34 08/23/17 21:34 GENERAL APPEARANCE: 22-year-old female patient is alert, oriented, in no acute distress. VITAL SIGNS: Reviewed HEENT: Head is normocephalic and atraumatic. Pupils are equal and reactive. The nares are patent. Oropharynx is clear without lesions. NECK: Supple without lymphadenopathy. Traches midline. HEART: S1, S2. Regular rate and rhythm. Denying chest pain LUNGS: No crackles or wheezes are heard. Adequate air movement bilaterally on room air ABDOMEN: Soft, mild tenderness right upper quadrant nondistended with good bowel sounds. No peritoneal signs. No palpable organomegaly or masses. EXTREMITIES: Normal skin color and turgor. No cyanosis, rash, ulceration, clubbing or edema. Radial pedal pulses are 2/4 bilaterally. NEUROLOGICAL: No focal deficits. Strength and sensation are grossly intact. Results - Labs 08/23/17 23:11 08/23/17 23:11 Abnormal Lab Results - Last 24 Hours (Table) 08/23/17 08/23/17 08/23/17 Range/Units 23:11 23:11 23:11 WBC 14.7 H (3.8-10.6) k/uL Neutrophils # 11.2 H (1.3-7.7) k/uL AST 89 H (14-36) U/L ALT 63 H (9-52) U/L Urine Protein 1+ H (Negative) Urine RBC 10 H (0-5) /hpf Urine Bacteria Occasional H (None) /hpf Urine Mucus Many H (None) /hpf Diabetes panel 08/23/17 Range/Units 23:11 Sodium 144 (137-145) mmol/L Potassium 4.5 (3.5-5.1) mmol/L Chloride 106 (98-107) mmol/L Carbon Dioxide 24 (22-30) mmol/L BUN 15 (7-17) mg/dL Creatinine 0.94 (0.52-1.04) mg/dL Glucose 99 (74-99) mg/dL Calcium 10.0 (8.4-10.2) mg/dL AST 89 H (14-36) U/L ALT 63 H (9-52) U/L Alkaline Phosphatase 68 (38-126) U/L Total Protein 7.2 (6.3-8.2) g/dL Albumin 4.5 (3.5-5.0) g/dL Calcium panel 08/23/17 Range/Units 23:11 Calcium 10.0 (8.4-10.2) mg/dL Albumin 4.5 (3.5-5.0) g/dL Pituitary panel 08/23/17 Range/Units 23:11 Sodium 144 (137-145) mmol/L Potassium 4.5 (3.5-5.1) mmol/L Chloride 106 (98-107) mmol/L Carbon Dioxide 24 (22-30) mmol/L BUN 15 (7-17) mg/dL Creatinine 0.94 (0.52-1.04) mg/dL Glucose 99 (74-99) mg/dL Calcium 10.0 (8.4-10.2) mg/dL Adrenal panel 08/23/17 Range/Units 23:11 Sodium 144 (137-145) mmol/L Potassium 4.5 (3.5-5.1) mmol/L Chloride 106 (98-107) mmol/L Carbon Dioxide 24 (22-30) mmol/L BUN 15 (7-17) mg/dL Creatinine 0.94 (0.52-1.04) mg/dL Glucose 99 (74-99) mg/dL Calcium 10.0 (8.4-10.2) mg/dL Total Bilirubin 0.4 (0.2-1.3) mg/dL AST 89 H (14-36) U/L ALT 63 H (9-52) U/L Alkaline Phosphatase 68 (38-126) U/L Total Protein 7.2 (6.3-8.2) g/dL Albumin 4.5 (3.5-5.0) g/dL Assessment and Plan Assessment: Impression Present on admission right upper quadrant abdominal pain suspect due to acute cholecystitis Ultrasound of the abdomen shows evidence of multiple small gallstones mild gallbladder thickening likely due to cholecystitis History of a seizure disorder on Lamictal Mild leukocytosis present on admission suspect reactive Mildly elevated liver enzymes Plan IV fluid for hydration Pain control Nothing by mouth for planned laparoscopic cholecystectomy today by Dr. seay DVT and GI prophylaxis Home meds as appropriate IV Unasyn as ordered The above impression and plan of care have been discussed and directed by signing physician. Antonette Baer nurse practitioner acting as scribe for signing physician.
--- NOTE | 2017-08-24 12:25 | P.CONS ---
History of Present Illness - Reason for Consult Consult date: 08/24/17 Medical management - Chief Complaint Abdominal pain - History of Present Illness This is a 22-year-old female with past medical history significant for seizure disorder who presented to the emergency room with worsening epigastric pain with radiation across the back. Patient said that over the past few days she has been having intermittent symptoms of abdominal pain that getting progressively worse. She said most of her pain is after she eats food in particular fried food. The night before her presentation she was feeling more nauseated and had one episode of vomiting. She was more concerned and decided to come to the emergency room. In the emergency room patient was evaluated and ultrasound of the abdomen showed evidence of acute cholecystitis. Patient is admitted under Gen. surgery and is planned for laparoscopic cholecystectomy today. Her pain is fairly well controlled at this time. She does not have any concerns otherwise. Review of Systems Review of system: 14 points review of systems were obtained and were negative except to what were mentioned in the HPI. Past Medical History Past Medical History: Seizure Disorder Additional Past Medical History / Comment(s): 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" History of Any Multi-Drug Resistant Organisms: None Reported Past Surgical History: Section Additional Past Surgical History / Comment(s): VTP Past Anesthesia/Blood Transfusion Reactions: No Reported Reaction Past Psychological History: No Psychological Hx Reported Smoking Status: Current some day smoker Past Alcohol Use History: None Reported Additional Past Alcohol Use History / Comment(s): 1 pack per week per pt Past Drug Use History: None Reported Additional Drug Use History / Comment(s): DENIES ANY PAST OR CURENT DRUG USE. - Past Family History Father Family Medical History: Asthma Mother Family Medical History: Cancer Additional Family Medical History / Comment(s): BREAST CANCER Medications and Allergies Home Medications Medication Instructions Recorded Confirmed Type lamoTRIgine [LaMICtal] 200 mg PO BID 12/29/15 08/23/17 History Folic Acid 1 mg PO BID 10/18/16 08/23/17 History lamoTRIgine [LaMICtal] 100 mg PO BID 10/18/16 08/23/17 History lamoTRIgine [LaMICtal] 25 mg PO BID #60 tab 10/20/16 08/23/17 Rx lamoTRIgine [LaMICtal] 25 mg PO BID 08/24/17 08/24/17 History Allergies Allergy/AdvReac Type Severity Reaction Status Date / Time No Known Allergies Allergy Verified 08/24/17 02:41 Physical Exam Vitals: Vital Signs Temp Pulse Pulse Pulse Resp BP BP 08/24/17 08:15 98.9 F 80 18 114/76 08/24/17 08:00 98.9 F 80 18 114/76 08/24/17 02:28 98.2 F 66 16 102/66 08/24/17 02:12 98.1 F 80 18 109/56 08/23/17 21:34 97.7 F 83 16 130/88 Pulse Ox 08/24/17 08:15 96 08/24/17 08:00 96 08/24/17 02:28 97 08/24/17 02:12 99 08/23/17 21:34 100 Intake and Output 08/23/17 08/24/17 08/24/17 22:59 06:59 14:59 Output Total 200 Balance -200 Output: Urine 200 Other: # Voids 1 Weight 86.183 kg 85.5 kg General: The patient is awake and alert, in no distress Eye: there is normal conjunctiva bilaterally. Neck: The neck is supple, there is no JVD. Cardiovascular: Normal S1-S2, no S3-S4, no murmurs. Respiratory: Lungs clear to auscultation bilaterally Gastrointestinal: Abdomen is soft, there is moderate tenderness to palpation worse in the right upper quadrant Musculoskeletal: There is no pedal edema. Neurological:. Speech is normal. Skin: Skin is warm and dry Results CBC & Chem 7: 08/23/17 23:11 08/23/17 23:11 Labs: Abnormal Lab Results - Last 24 Hours (Table) 08/23/17 08/23/17 08/23/17 Range/Units 23:11 23:11 23:11 WBC 14.7 H (3.8-10.6) k/uL Neutrophils # 11.2 H (1.3-7.7) k/uL AST 89 H (14-36) U/L ALT 63 H (9-52) U/L Urine Protein 1+ H (Negative) Urine RBC 10 H (0-5) /hpf Urine Bacteria Occasional H (None) /hpf Urine Mucus Many H (None) /hpf Assessment and Plan Assessment: 1. Acute cholecystitis 2. Cholelithiasis 3. Mild leukocytosis secondary to #1 4. Underlying seizure disorder on Lamictal 5. Mild transaminitis Today, I reviewed her medication list and lab work results. Continue IV fluid hydration. Patient scheduled for laparoscopic cholecystectomy today. Thank you very much for the consultation.
[2017-08-24] MEDS ORDERED: ceFAZolin 1,000 MG VIAL IVPB ONE ×2 (12:39→14:39)
[2017-08-24] MEDS: FAMOTIDINE 20 MG/2 ML VIAL IV SCH ×2 (12:49→20:52)
[2017-08-24] MEDS ORDERED: IV FLUID CONTINUATION 1,000 ML IV ONE (13:14)
[2017-08-24] MEDS: ONDANSETRON 4 MG/2 ML VIAL IVP STA (13:43)
[2017-08-24] MEDS ORDERED: HEPARIN SODIUM,PORCINE 5,000 UNIT/ML 1 ML VIAL SQ ONE (13:54)
[2017-08-24] MEDS ORDERED: BUPIVACAINE (PF) 0.5% 30 ML VIAL SQ ONE ×2 (14:23→14:43)
[2017-08-24] MEDS ORDERED: ROCURONIUM BROMIDE 10 MG/ML 10 ML VIAL IV ONE (14:26)
[2017-08-24] MEDS ORDERED: ceFAZolin 1,000 MG VIAL ONE (14:26)
[2017-08-24] MEDS ORDERED: DEXAMETHASONE SOD PHOS (MDV) 100 MG/10 ML VIAL ONE (14:26)
[2017-08-24] MEDS ORDERED: SUCCINYLCHOLINE CHLORIDE 100 MG/5 ML SYR IV ONE (14:26)
[2017-08-24] MEDS ORDERED: GLYCOPYRROLATE 0.2 MG/ML 2 ML VIAL ONE (14:26)
[2017-08-24] MEDS ORDERED: KETOROLAC 30 MG/ML 1 ML VIAL ONE (14:26)
[2017-08-24] MEDS ORDERED: NEOSTIGMINE 1 MG/ML 10 ML VIAL ONE (14:26)
[2017-08-24] MEDS ORDERED: MIDAZOLAM 2 MG/2 ML VIAL ONE (14:26)
[2017-08-24] MEDS ORDERED: LIDOCAINE 1% INJ 10MG/ML (20 ML MDV) ONE (14:26)
[2017-08-24] MEDS ORDERED: fentaNYL (PF) 50 MCG/ML 2 ML AMP ONE (14:26)
[2017-08-24] MEDS ORDERED: LACTATED RINGERS 1,000 ML IV ONE (15:07)
[2017-08-24] MEDS: MORPHINE SULFATE 4 MG/ML SYRINGE IV PRN ×2 (16:39→21:19)
[2017-08-25] MEDS: SODIUM CHLORIDE 0.9% 1,000 ML IV SCH (05:37)
[2017-08-25 06:48] LABS: Basophils % (A) 0 %; Eosinophils # (A) 0.1 k/uL (0-0.7); Eosinophils % (A) 1 %; HCT 37.3 % (34.0-46.0); HGB 12.8 gm/dL (11.4-16.0); Lymphocytes # (A) 2.6 k/uL (1.0-4.8); Lymphocytes % (A) 30 %; MCH 31.5 pg (25.0-35.0); MCHC 34.2 g/dL (31.0-37.0); MCV 92.1 fL (80.0-100.0); Mean Platelet Volume 6.7; Monocytes # (A) 0.6 k/uL (0-1.0); Monocytes % (A) 7 %; Neutrophils # (A) 5.2 k/uL (1.3-7.7); Neutrophils % (A) 60 %; Platelet Count 250 k/uL (150-450); RBC 4.05 m/uL (3.80-5.40); RDW 12.7 % (11.5-15.5); WBC 8.6 k/uL (3.8-10.6)
[2017-08-25 06:57] LABS: ALT 175 U/L (9-52); AST 118 U/L (14-36); Albumin 3.7 g/dL (3.5-5.0); Alkaline Phosphatase 92 U/L (38-126); Anion Gap 11 mmol/L; Blood Urea Nitrogen 8 mg/dL (7-17); Calcium 8.7 mg/dL (8.4-10.2); Carbon Dioxide 22 mmol/L (22-30); Chloride 111 mmol/L (98-107); Glucose 93 mg/dL (74-99); Potassium 4.4 mmol/L (3.5-5.1); Sodium 144 mmol/L (137-145); Total Protein 6.1 g/dL (6.3-8.2)
[2017-08-25] MEDS: lamoTRIgine 100 MG TAB PO SCH (08:36)
[2017-08-25] MEDS: lamoTRIgine 25 MG TAB PO SCH (08:37)
[2017-08-25] MEDS: FAMOTIDINE 20 MG/2 ML VIAL IV SCH (08:38)
[2017-08-25] MEDS: AMPICILLIN-SULBACTAM 3 GM in SODIUM CHLORIDE 0.9% 100 ML IVPB SCH (08:38)
[2017-08-25 09:26] VITALS: BP 121/79; PULSE 68; RESP 16; TEMP 98
--- NOTE | 2017-08-25 10:27 | P.PN ---
Subjective Progress Note Date: 08/25/17 22-year-old female being seen on rounds this morning has been up ambulating in the hallway states belching and passing gas rectally tolerating diet. Patient states anxious to be discharged. Afebrile. Patient is taking plain Tylenol for pain states it's effective for pain control surgical incision sites dressings dry. Did note labs this morning total bilirubin 2 AST 118 ALT 175. Total bili on admission 0.4 AST 89 ALT 63 alk phos 175 abdomen soft nondistended Objective - Vital Signs Vital signs: Vital Signs Temp 98 F 08/25/17 08:25 Pulse 68 08/25/17 08:25 Resp 16 08/25/17 08:25 BP 121/79 08/25/17 08:25 Pulse Ox 97 08/25/17 08:25 Intake & Output 08/24/17 08/25/17 08/25/17 18:59 06:59 18:59 Intake Total 1250 200 Output Total 10 Balance 1240 200 Intake: IV 1250 Oral 200 Output: Estimated Blood Loss 10 Other: # Voids 1 1 1 - Exam Physical exam Pleasant 22-year-old female ambulating in the han passing gas and belching Lungs adequate air movement bilaterally on room air Heart S1-S2 audible regular abdomen soft surgical dressing sites dry not distended surgical tenderness appropriate passing gas no stool urinating no difficulty tolerating diet no nausea no vomiting bowel tones present Extremities no edema - Labs CBC & Chem 7: 08/25/17 06:21 08/25/17 06:21 Labs: Abnormal Lab Results - Last 24 Hours (Table) 08/25/17 Range/Units 06:21 Chloride 111 H (98-107) mmol/L Total Bilirubin 2.0 H (0.2-1.3) mg/dL AST 118 H (14-36) U/L ALT 175 H (9-52) U/L Total Protein 6.1 L (6.3-8.2) g/dL Assessment and Plan Assessment: Impression Present on admission right upper quadrant abdominal pain suspect due to acute cholecystitis Ultrasound of the abdomen shows evidence of multiple small gallstones mild gallbladder thickening likely due to cholecystitis History of a seizure disorder on Lamictal Mild leukocytosis present on admission suspect reactive Mildly elevated liver enzymes Plan IV fluid for hydration Pain control DVT and GI prophylaxis Home meds as appropriate Repeat a CMP now follow up on results probable discharge within the next 24-48 hours The above impression and plan of care have been discussed and directed by signing physician. Antonette Baer nurse practitioner acting as scribe for signing physician.
[2017-08-25 11:11] LABS: ALT 170 U/L (9-52); AST 108 U/L (14-36); Albumin 3.7 g/dL (3.5-5.0); Alkaline Phosphatase 94 U/L (38-126); Anion Gap 9 mmol/L; Blood Urea Nitrogen 8 mg/dL (7-17); Calcium 8.9 mg/dL (8.4-10.2); Carbon Dioxide 26 mmol/L (22-30); Chloride 109 mmol/L (98-107); Glucose 86 mg/dL (74-99); Potassium 4.1 mmol/L (3.5-5.1); Sodium 144 mmol/L (137-145); Total Bilirubin 1.3 mg/dL (0.2-1.3); Total Protein 6.1 g/dL (6.3-8.2)
--- NOTE | 2017-08-25 12:32 | P.DS ---
Providers Date of admission: 08/24/17 01:05 Expected date of discharge: 08/25/17 Attending physician: Gurinder Santillan Consults: 08/24/17 12:13 Consult Physician Urgent Consulting Provider: Negro Navarro Consult Reason/Comments: med txg Do you want consulting provider notified?: Yes Primary care physician: [facility] Course: 22-year-old female presented on the day of admission to the emergency room to be evaluated for right upper quadrant abdominal pain with nausea vomiting. Patient stated that she noted that after she ate some fried food for dinner developed midepigastric pain radiating to the right upper quadrant. Vomited once. Patient has no significant past surgical history except for a 7 months prior. Additionally past medical history of seizure disorder which she 's followed by neurology service ultrasound of the abdomen show multiple gallstones. Suspicious for acute cholecystitis, bile duct is normal not dilated labs on the day of discharge total bili 1.3 AST and ALT were trending down patient was ambulatory on the unit plain Tylenol was effective for pain control. Patient had refused [place] states the pain "had significantly improved patient was felt to be clinically stable appropriate proceed with a discharge to home Impression Present on admission right upper quadrant abdominal pain suspect due to acute cholecystitis Ultrasound of the abdomen shows evidence of multiple small gallstones mild gallbladder thickening likely due to cholecystitis History of a seizure disorder on Lamictal Mild leukocytosis present on admission suspect reactive Mildly elevated liver enzymes Status post August 24 laparoscopic cholecystectomy for acute cholecystitis The above impression and plan of care have been discussed and directed by signing physician. Antonette Baer nurse practitioner acting as scribe for signing physician. Patient Condition at Discharge: Serious Plan - Discharge Summary New Discharge Prescriptions: New Acetaminophen Tab [Tylenol Tab] 650 mg PO Q4H PRN #30 tablet PRN Reason: Mild Breakthrough Pain Continue lamoTRIgine [LaMICtal] 200 mg PO BID lamoTRIgine [LaMICtal] 100 mg PO BID Folic Acid 1 mg PO BID lamoTRIgine [LaMICtal] 25 mg PO BID #60 tab lamoTRIgine [LaMICtal] 25 mg PO BID Discharge Medication List lamoTRIgine [LaMICtal] 200 mg PO BID 12/29/15 [History] Folic Acid 1 mg PO BID 10/18/16 [History] lamoTRIgine [LaMICtal] 100 mg PO BID 10/18/16 [History] lamoTRIgine [LaMICtal] 25 mg PO BID #60 tab 10/20/16 [Rx] lamoTRIgine [LaMICtal] 25 mg PO BID 08/24/17 [History] Acetaminophen Tab [Tylenol Tab] 650 mg PO Q4H PRN #30 tablet 08/25/17 [Rx] Follow up Appointment(s)/Referral(s): Kalani Givens MD [Primary Care Provider] - 1-2 days Gurinder Santillan MD [STAFF PHYSICIAN] - 09/01/17 3:20 pm (Bring your drivers license, insurance card, medication list, paper work at office.) Patient Instructions/Handouts: Low Fat Diet (GEN) Activity/Diet/Wound Care/Special Instructions: No tub bath for six weeks. Shower daily. No lifting over 10 pounds for the next 6 weeks. Do not remove the plastic dressings from surgical site Soft diet until seen in office visit May use ice packs to surgical site. Walk every 1 hour while awake Use [id number] stool softener if needed for constipation Discharge Disposition: HOME SELF-CARE
--- NOTE | 2017-09-08 11:01 | P.OP ---
Date of Procedure: 08/24/17 Preoperative Diagnosis: Cholecystitis Postoperative Diagnosis: Cholecystitis Procedure(s) Performed: Laparoscopic cholecystectomy Anesthesia: MAURICIO Surgeon: Gurinder Santillan Estimated Blood Loss (ml): 5 Pathology: other (Gallbladder) Condition: stable Disposition: PACU Description of Procedure: The patient was placed on the operating table. The patient received a general endotracheal tube anesthesia. The patients abdomen was prepped and draped in the usual sterile fashion. Through an infraumbilical stab incision, the fascia of the anterior abdominal wall was grasped with a pair of Kochers and then the Veress needle was placed in the peritoneal cavity. Position of the Veress needle was confirmed with positive drop test. The abdomen was then insufflated. After adequate insufflation, the 10 mm trocar was placed in the peritoneal cavity. Following this the laparoscope was placed in the peritoneal cavity. The patient was placed in the head-up, right side up position and then a 5 mm trocar was placed in the right lateral and right subcostal position under direct visualization. A 8 mm trocar was placed in the epigastric position. The gallbladder was grasped in the fundus and infundibulum. Traction on the gallbladder was placed in the lateral and the cephalad positions. The triangle of Calot was visualized.. The cystic duct was bluntly dissected until the union of the cystic duct and common bile duct was seen. The cystic duct was then divided and sealed with the Harmonic scissors. A PDS Endoloop was then placed throughout the cystic duct stump. The cystic artery divided and sealed with the Harmonic scissors. The gallbladder was then removed from the liver bed using Harmonic scissors. The gallbladder was then extracted through the epigastric port site. Operative field was checked for any bleeding spots and Harmonic scissors was used to coagulate the liver bed. The abdomen was irrigated. The trocars were removed. The skin was closed using interrupted 3-0 Vicryl suture. Dermabond dressing were applied. The patient tolerated the procedure well.
== END 2017-08-25 12:45 | disposition home or self-care (01) | DRG 419 ==
LOC: EC 21:24 → 6PED 08-24 01:05
PROVIDERS: ADMIT Surgery; ATTEND Surgery
PROC: 0FT44ZZ Resection of Gallbladder, Percutaneous Endoscopic Approach (ICD-10-PCS; principal; 2017-08-24 09:55)
DX: K80.00 Calculus of gallbladder with acute cholecystitis without obstruction (principal); F17.200 Nicotine dependence, unspecified, uncomplicated; G40.909 Epilepsy, unspecified, not intractable, without status epilepticus; Z79.899 Other long term (current) drug therapy; Z80.3 Family history of malignant neoplasm of breast; Z82.5 Family history of asthma and other chronic lower respiratory diseases; D72.829 Elevated white blood cell count, unspecified
CPT/HCPCS: 36415; 76705; 80053; 81001; 81025; 82150; 83690; 85025; 88304; 96361; 96374; 96375; 99285

== ENCOUNTER 2017-11-07 20:38 | Emergency (ER) | payer BC, OTHER ==
[2017-11-07] MEDS ORDERED: MORPHINE SULFATE 2 MG/ML SYRINGE IVP STA (21:25)
--- NOTE | 2017-11-07 22:11 | XR ---
EXAMINATION TYPE: XR ankle complete RT DATE OF EXAM: 11/07/2017 COMPARISON: NONE HISTORY: Foot pain and ankle pain TECHNIQUE: 3 views FINDINGS: Ankle mortise is anatomic. I see no fracture nor dislocation. Soft tissues appear normal. IMPRESSION: Negative right ankle exam.
--- NOTE | 2017-11-07 22:11 | XR ---
EXAMINATION TYPE: XR foot complete RT DATE OF EXAM: 11/07/2017 COMPARISON: NONE HISTORY: Foot and ankle pain TECHNIQUE: 3 views FINDINGS: I see no fracture nor dislocation. Joint spaces are normal. There are no pathologic calcifi cations. IMPRESSION: Negative right foot exam.
--- NOTE | 2017-11-07 22:57 | ED ---
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 When another coworker turned on the machine and her right foot was caught in a part that was twisting around. She was unable to move her foot from the machine, she stated wasn't spinning very fast and when her foot got caught and stopped it however she was unable to remove it. EMS arrived, jaws of life were used to remove her foot from the machine. There are no lacerations or abrasions, no evidence of open fracture, they thought there may have been a deformity of the ankle. Patient denies dislocation. Neurovascular exam intact for ankle performed by EMS and patient was put in a splint. Patient was given fentanyl on the way to emergency department. Patient arrived to the emergency department in stable condition. Patient denies any numbness, tingling, loss of sensation, muscle weakness, loss of ROM, ecchymosis. Pt did admit to pain in the right ankle and swelling. - Related Data Home Medications Medication Instructions Recorded Confirmed lamoTRIgine [LaMICtal] 200 mg PO BID 12/29/15 11/07/17 Folic Acid 1 mg PO BID 10/18/16 11/07/17 lamoTRIgine [LaMICtal] 100 mg PO BID 10/18/16 11/07/17 lamoTRIgine [LaMICtal] 25 mg PO BID 08/24/17 11/07/17 Multivitamins, Thera [Multivitamin 1 tab PO DAILY 11/07/17 11/07/17 (formulary)] Previous Rx's Medication Instructions Recorded lamoTRIgine [LaMICtal] 25 mg PO BID #60 tab 10/20/16 Allergies Allergy/AdvReac Type Severity Reaction Status Date / Time No Known Allergies Allergy Verified 11/07/17 20:54 Review of Systems ROS Statement: Those systems with pertinent positive or pertinent negative responses have been documented in the HPI. ROS Other: All systems not noted in ROS Statement are negative. Constitutional: Denies: fever, chills Eyes: Denies: eye pain ENT: Denies: ear pain, throat pain Respiratory: Denies: cough, dyspnea, wheezes, hemoptysis, stridor Cardiovascular: Denies: chest pain, palpitations, dyspnea on exertion, orthopnea , edema Gastrointestinal: Denies: abdominal pain, nausea, vomiting Genitourinary: Denies: urgency, dysuria, frequency, hematuria, discharge Musculoskeletal: Reports: as per HPI, joint swelling, arthralgia Skin: Denies: rash, lesions Neurological: Denies: headache, weakness, numbness, paresthesias, confusion, abnormal gait Past Medical History Past Medical History: Seizure Disorder Additional Past Medical History / Comment(s): 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" History of Any Multi-Drug Resistant Organisms: None Reported Past Surgical History: Section, Cholecystectomy Additional Past Surgical History / Comment(s): VTP Past Anesthesia/Blood Transfusion Reactions: No Reported Reaction Past Psychological History: No Psychological Hx Reported Smoking Status: Current every day smoker Past Alcohol Use History: None Reported Past Drug Use History: None Reported - Past Family History Father Family Medical History: Asthma Mother Family Medical History: Cancer Additional Family Medical History / Comment(s): BREAST CANCER General Exam - General Exam Comments Initial Comments: General: The patient is awake and alert, in no distress, and does not appear acutely ill. Eye: Pupils are equal, round and reactive to light, extra-ocular movements are intact. No nystagmus. There is normal conjunctiva bilaterally. No signs of icterus. Ears, nose, mouth and throat: There are moist mucous membranes and no oral lesions. Neck: The neck is supple, there is no tenderness or JVD. Cardiovascular: There is a regular rate and rhythm. No murmur, rub or gallop is appreciated. Respiratory: Lungs are clear to auscultation, respirations are non-labored, breath sounds are equal. No wheezes, stridor, rales, or rhonchi. Musculoskeletal: Mild soft tissue swelling or ecchymosis noted. No obvious deformities. Normal ROM without difficulty of the hips, knees, ankles and feel b /l. Tenderness to with plantar flexion at the right ankle joint. Strength 5/5 at the hip, knees and ankle b/l. Sensation intact of the LE equally b/l. Pulses equal bilaterally 2+ PT and DP b/l. Capillary refill <2sec b/l. No laxity or crepitus noted at ankle joint. (-) anterior and posterior drawer testing. Compartments soft and compressible of the lower extremities equally bilaterally. Neurological: A&O x 3. CN II-XII intact, There are no obvious motor or sensory deficits. Coordination appears grossly intact. Speech is normal. Skin: Skin is warm and dry and no rashes or lesions are noted. No lacerations or abrasions Psychiatric: Cooperative, appropriate mood & affect, normal judgment. Limitations: no limitations Course Vital Signs 11/07/17 11/07/17 20:48 23:31 Pulse Rate 74 66 Respiratory 20 18 Rate Blood Pressure 129/65 106/68 O2 Sat by Pulse 98 100 Oximetry Medical Decision Making - Medical Decision Making Pt given 2mg IVP morphine given mechanism for pain mgmt for possible underlying fracture. XR ankle/foot obtained (-) for dislocations, fracture or other acute process. XR reviewed by myself and Dr. Son. Neurovascular exam unremarkable , compartments soft and compressible. At this time we feel patient has a right ankle sprain. Mykel bandage applied to right ankle, patient is instructed to follow primary care provider one to 2 days. Patient was instructed to follow- up with orthopedic surgery if symptoms persist for greater than 1 week. Patient was discharged in stable condition, with instruction to ice, elevate, and take [id number] pain medication as needed. Disposition Clinical Impression: Right ankle sprain Disposition: HOME SELF-CARE Condition: Good Instructions: Ankle Sprain (ED) Additional Instructions: Please use over the counter pain medication as discussed. Please follow-up with family doctor in the next 2 days or orthopedic surgery if symptoms persist >1 week. Please return to emergency room if the symptoms increase or worsen or for any other concerns. Is patient prescribed a controlled substance at d/c from ED?: No Referrals: Kalani Givens MD [Primary Care Provider] - 1-2 days Todd Cuadra MD [STAFF PHYSICIAN] - 1-2 days Time of Disposition: 22:57
[2017-11-07 23:33] VITALS: BP 106/68; PULSE 66; RESP 18
== END 2017-11-07 23:31 | disposition home or self-care (01) ==
LOC: EC 20:38
DX: S93.401A Sprain of unspecified ligament of right ankle, initial encounter (principal); G40.909 Epilepsy, unspecified, not intractable, without status epilepticus; F17.200 Nicotine dependence, unspecified, uncomplicated; Z79.899 Other long term (current) drug therapy; W31.89XA Contact with other specified machinery, initial encounter; Y92.69 Other specified industrial and construction area as the place of occurrence of the external cause; Y99.0 Civilian activity done for income or pay
CPT/HCPCS: 73610; 73630; 99284; 96374; J2270

== ENCOUNTER → 2017-11-09 | Outpatient (CLI) | payer OTHER ==
--- NOTE | 2017-11-09 13:25 | XR ---
EXAMINATION TYPE: XR shoulder complete RT DATE OF EXAM: 11/09/2017 CLINICAL HISTORY: Injury with pain. TECHNIQUE: Three views of the right shoulder are obtained. COMPARISON: None. FINDINGS: There is no acute fracture/dislocation evident in the right shoulder. The acromioclavicul ar and glenohumeral joint spaces appear within normal limits. The visualized ribs are intact and unr emarkable. IMPRESSION: There is no acute fracture or dislocation in the right shoulder.
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
== END | disposition home or self-care (01) ==
LOC: RADXRMAIN 12:56
PROVIDERS: ATTEND Emergency Medicine
DX: S40.011A Contusion of right shoulder, initial encounter (principal); S70.01XA Contusion of right hip, initial encounter
CPT/HCPCS: 72170

== ENCOUNTER → 2017-11-17 | Outpatient (CLI) | payer OTHER ==
--- NOTE | 2017-11-17 23:10 | MR ---
EXAMINATION TYPE: MR shoulder RT wo con DATE OF EXAM: 11/17/2017 COMPARISON: None HISTORY: Right shoulder contusion. TECHNIQUE: Multiplanar, multisequence imaging of the right shoulder is performed without contrast. FINDINGS: The glenoid megan appear intact. Biceps tendon is intact. Subscapularis tendon appears intact. There is increased signal in the supraspinatus tendon over the greater tuberosity of the humerus. The re is no retraction. There is no subacromial impingement. Joint spaces are fairly normal. IMPRESSION: There is full-thickness rotator cuff tear of the supraspinatus tendon. No retraction.
== END | disposition home or self-care (01) ==
LOC: RADMRIMAIN 13:24
PROVIDERS: ATTEND Emergency Medicine
DX: M75.121 Complete rotator cuff tear or rupture of right shoulder, not specified as traumatic (principal)

== ENCOUNTER 2019-01-24 16:44 | Emergency (ER) | payer OTHER ==
[2019-01-24 16:57] VITALS: BP 124/69; PULSE 80; RESP 18; TEMP 97.1
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
== END 2019-01-24 17:54 | disposition home or self-care (01) ==
LOC: EC 16:44
DX: S09.90XA Unspecified injury of head, initial encounter (principal); M54.2 Cervicalgia; G40.909 Epilepsy, unspecified, not intractable, without status epilepticus; F17.200 Nicotine dependence, unspecified, uncomplicated; Z79.899 Other long term (current) drug therapy; V43.62XA Car passenger injured in collision with other type car in traffic accident, initial encounter; Y92.410 Unspecified street and highway as the place of occurrence of the external cause
CPT/HCPCS: 70450; 72125; 99284

== ENCOUNTER 2020-07-14 08:19 | Emergency (ER) | payer OTHER ==
[2020-07-14] MEDS ORDERED: ALBUTEROL HFA INHALER INHALATION STA (08:31)
--- NOTE | 2020-07-14 09:01 | XR ---
EXAMINATION TYPE: XR chest 2V DATE OF EXAM: 07/14/2020 COMPARISON: NONE HISTORY: JAVI. COVID positive. TECHNIQUE: Frontal and lateral views of the chest are obtained. FINDINGS: There is no suspicious focal air space opacity, pleural effusion, or pneumothorax seen. T he cardiac silhouette size is within normal limits. The osseous structures are intact. IMPRESSION: No acute pulmonary process.
--- NOTE | 2020-07-14 09:07 | ED ---
URI HPI - General Chief Complaint: Upper Respiratory Infection Stated Complaint: DIF Time Seen by Provider: 07/14/20 08:20 Source: patient, EMS Mode of arrival: EMS Limitations: no limitations - History of Present Illness Initial Comments: 25 or female presenting today for chief complaint of shortness of breath left shoulder pain. Patient states that she has had left shoulder pain since yesterday evening. She states she was not sure if it was related to her comfortable 19 infection, she states she looked up the symptoms and was concerned she had a blood clot. Patient states she thinks it increases with inspiration slightly. Denies chest pressure, jaw pain, nausea, vomiting, chest pain/pressure/abdominal pain. Pt denies coughing up blood, leg swelling, recent immobilization. patient states that she was on control but has been off of it. Patient denies recent surgeries, calf pain. Patient tested positive 1 week ago but has had symptoms >10 days. Patient states she still has a cough. remaining ROS (-). upon arrival VS WNL. - Related Data Home Medications Medication Instructions Recorded Confirmed lamoTRIgine [LaMICtal] 200 mg PO BID 12/29/15 11/07/17 Folic Acid 1 mg PO BID 10/18/16 11/07/17 lamoTRIgine [LaMICtal] 100 mg PO BID 10/18/16 11/07/17 lamoTRIgine [LaMICtal] 25 mg PO BID 08/24/17 11/07/17 Multivitamins, Thera [Multivitamin 1 tab PO DAILY 11/07/17 11/07/17 (formulary)] Previous Rx's Medication Instructions Recorded lamoTRIgine [LaMICtal] 25 mg PO BID #60 tab 10/20/16 Allergies Allergy/AdvReac Type Severity Reaction Status Date / Time No Known Allergies Allergy Verified 07/14/20 08:24 Review of Systems ROS Statement: Those systems with pertinent positive or pertinent negative responses have been documented in the HPI. ROS Other: All systems not noted in ROS Statement are negative. 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 Past Anesthesia/Blood Transfusion Reactions: No Reported Reaction Past Psychological History: Depression Smoking Status: Current every day smoker Past Alcohol Use History: None Reported Past Drug Use History: None Reported - Past Family History Father Family Medical History: Asthma Mother Family Medical History: Cancer Additional Family Medical History / Comment(s): BREAST CANCER General Exam - General Exam Comments Initial Comments: General: The patient is awake and alert, in no distress Eye: Pupils are equal, round and reactive to light, extra-ocular movements are intact. No nystagmus. There is normal conjunctiva bilaterally. No signs of icterus. Ears, nose, mouth and throat: There are moist mucous membranes and no oral lesions. Neck: The neck is supple, there is no tenderness or JVD. Cardiovascular: There is a regular rate and rhythm. No murmur, rub or gallop is appreciated. Respiratory: Lungs are clear to auscultation, respirations are non-labored, breath sounds are equal. No wheezes, stridor, rales, or rhonchi. Gastrointestinal: Soft, non-distended, non-tender abdomen without masses or organomegaly noted. There is no rebound or guarding present. Musculoskeletal: Pain with overhead ROM. Normal ROM, no tenderness. Strength 5/5. Sensation intact. Radial and DP pulses equal bilaterally 2+. Neurological: A&O x 3. CN II-XII intact, There are no obvious motor or sensory deficits. Coordination appears grossly intact. Speech is normal. Skin: Skin is warm and dry and no rashes or lesions are noted. No calf pain or LE or UE swelling. Psychiatric: Cooperative, appropriate mood & affect, normal judgment. Limitations: no limitations Course Vital Signs 07/14/20 07/14/20 07/14/20 08:24 09:33 10:51 Temperature 98 F 98.5 F Pulse Rate 78 80 Respiratory 18 20 18 Rate Blood Pressure 116/76 103/73 O2 Sat by Pulse 96 98 Oximetry Medical Decision Making - Medical Decision Making pain increases with overhead ROM. Labs stable. Dimer (-). Troponin (-). EKG no acute changes. Low-risk PE. Patient has no extremity findings. patient case discussed with Dr. Barnard at this time we feel patient is stable for discharge with pcp f/u. - Lab Data Result diagrams: 07/14/20 09:32 07/14/20 09:32 Lab Results 07/14/20 07/14/20 07/14/20 Range/Units 09:32 09:32 09:32 WBC 8.8 (3.8-10.6) k/uL RBC 4.78 (3.80-5.40) m/uL Hgb 15.2 (11.4-16.0) gm/dL Hct 42.4 (34.0-46.0) % MCV 88.6 (80.0-100.0) fL MCH 31.8 (25.0-35.0) pg MCHC 35.8 (31.0-37.0) g/dL RDW 12.0 (11.5-15.5) % Plt Count 258 (150-450) k/uL MPV 7.1 Neutrophils % 54 % Lymphocytes % 35 % Monocytes % 8 % Eosinophils % 1 % Basophils % 0 % Neutrophils # 4.8 (1.3-7.7) k/uL Lymphocytes # 3.1 (1.0-4.8) k/uL Monocytes # 0.7 (0-1.0) k/uL Eosinophils # 0.1 (0-0.7) k/uL Basophils # 0.0 (0-0.2) k/uL D-Dimer 0.25 (<0.60) mg/L FEU Sodium 138 (137-145) mmol/L Potassium 4.5 (3.5-5.1) mmol/L Chloride 110 H (98-107) mmol/L Carbon Dioxide 21 L (22-30) mmol/L Anion Gap 7 mmol/L BUN 11 (7-17) mg/dL Creatinine 0.89 (0.52-1.04) mg/dL Est GFR (CKD-EPI)AfAm >90 (>60 ml/min/1.73 sqM) Est GFR (CKD-EPI)NonAf 90 (>60 ml/min/1.73 sqM) Glucose 95 (74-99) mg/dL Calcium 9.3 (8.4-10.2) mg/dL Total Bilirubin 0.5 (0.2-1.3) mg/dL AST 27 (14-36) U/L ALT 25 (4-34) U/L Alkaline Phosphatase 75 (38-126) U/L Troponin I (0.000-0.034) ng/mL Total Protein 7.3 (6.3-8.2) g/dL Albumin 4.2 (3.5-5.0) g/dL 07/14/20 Range/Units 09:32 WBC (3.8-10.6) k/uL RBC (3.80-5.40) m/uL Hgb (11.4-16.0) gm/dL Hct (34.0-46.0) % MCV (80.0-100.0) fL MCH (25.0-35.0) pg MCHC (31.0-37.0) g/dL RDW (11.5-15.5) % Plt Count (150-450) k/uL MPV Neutrophils % % Lymphocytes % % Monocytes % % Eosinophils % % Basophils % % Neutrophils # (1.3-7.7) k/uL Lymphocytes # (1.0-4.8) k/uL Monocytes # (0-1.0) k/uL Eosinophils # (0-0.7) k/uL Basophils # (0-0.2) k/uL D-Dimer (<0.60) mg/L FEU Sodium (137-145) mmol/L Potassium (3.5-5.1) mmol/L Chloride (98-107) mmol/L Carbon Dioxide (22-30) mmol/L Anion Gap mmol/L BUN (7-17) mg/dL Creatinine (0.52-1.04) mg/dL Est GFR (CKD-EPI)AfAm (>60 ml/min/1.73 sqM) Est GFR (CKD-EPI)NonAf (>60 ml/min/1.73 sqM) Glucose (74-99) mg/dL Calcium (8.4-10.2) mg/dL Total Bilirubin (0.2-1.3) mg/dL AST (14-36) U/L ALT (4-34) U/L Alkaline Phosphatase (38-126) U/L Troponin I <0.012 (0.000-0.034) ng/mL Total Protein (6.3-8.2) g/dL Albumin (3.5-5.0) g/dL Disposition Clinical Impression: Dyspnea, COVID-19 Disposition: HOME SELF-CARE Condition: Good Instructions (If sedation given, give patient instructions): Coronavirus Disease 2019 (COVID-19) Additional Instructions: Please use medication as discussed. Please follow-up with family doctor in the next 2 days. Please return to emergency room if the symptoms increase or worsen or for any other concerns. Is patient prescribed a controlled substance at d/c from ED?: No Referrals: Kalani Givens MD [Primary Care Provider] - 1-2 days Time of Disposition: 10:33
[2020-07-14] MEDS ORDERED: ACETAMINOPHEN TAB 325 MG TAB PO STA (09:42)
[2020-07-14 09:48] LABS: Basophils % (A) 0 %; Eosinophils # (A) 0.1 k/uL (0-0.7); Eosinophils % (A) 1 %; HCT 42.4 % (34.0-46.0); HGB 15.2 gm/dL (11.4-16.0); Lymphocytes # (A) 3.1 k/uL (1.0-4.8); Lymphocytes % (A) 35 %; MCH 31.8 pg (25.0-35.0); MCHC 35.8 g/dL (31.0-37.0); MCV 88.6 fL (80.0-100.0); Mean Platelet Volume 7.1; Monocytes # (A) 0.7 k/uL (0-1.0); Monocytes % (A) 8 %; Neutrophils # (A) 4.8 k/uL (1.3-7.7); Neutrophils % (A) 54 %; Platelet Count 258 k/uL (150-450); RBC 4.78 m/uL (3.80-5.40); WBC 8.8 k/uL (3.8-10.6)
[2020-07-14 10:05] LABS: ALT 25 U/L (4-34); AST 27 U/L (14-36); African American GFR (CKD) >90 (>60 ml/min/1.73 sqM); Albumin 4.2 g/dL (3.5-5.0); Alkaline Phosphatase 75 U/L (38-126); Anion Gap 7 mmol/L; Blood Urea Nitrogen 11 mg/dL (7-17); Calcium 9.3 mg/dL (8.4-10.2); Carbon Dioxide 21 mmol/L (22-30); Chloride 110 mmol/L (98-107); Glucose 95 mg/dL (74-99); Non-African American GFR(CKD) 90 (>60 ml/min/1.73 sqM); Potassium 4.5 mmol/L (3.5-5.1); Sodium 138 mmol/L (137-145); Total Bilirubin 0.5 mg/dL (0.2-1.3); Total Protein 7.3 g/dL (6.3-8.2)
[2020-07-14 10:56] VITALS: BP 103/73; PULSE 80; RESP 18; TEMP 98.5
== END 2020-07-14 10:57 | disposition home or self-care (01) ==
LOC: EC 08:19
DX: U07.1 COVID-19 (principal); G40.909 Epilepsy, unspecified, not intractable, without status epilepticus; F17.200 Nicotine dependence, unspecified, uncomplicated; Z79.899 Other long term (current) drug therapy
CPT/HCPCS: 36415; 71046; 80053; 84484; 85025; 85379; 93005; 94640; 99285

== ENCOUNTER 2023-05-19 16:18 | Emergency (ER) | payer OTHER ==
[2023-05-19 16:34] VITALS: RESP 17
[2023-05-19 16:50] LABS: Basophils % (A) 0 %; Eosinophils # (A) 0.2 k/uL (0-0.7); Eosinophils % (A) 3 %; HCT 40.3 % (34.0-46.0); HGB 13.3 gm/dL (11.4-16.0); Lymphocytes # (A) 1.4 k/uL (1.0-4.8); Lymphocytes % (A) 21 %; MCH 30.5 pg (25.0-35.0); MCHC 33.1 g/dL (31.0-37.0); MCV 92.2 fL (80.0-100.0); Mean Platelet Volume 7.6; Monocytes # (A) 0.4 k/uL (0-1.0); Monocytes % (A) 6 %; Neutrophils # (A) 4.6 k/uL (1.3-7.7); Neutrophils % (A) 69 %; Platelet Count 235 k/uL (150-450); RBC 4.37 m/uL (3.80-5.40); RDW 12.9 % (11.5-15.5); WBC 6.7 k/uL (3.8-10.6)
[2023-05-19] MEDS: LORazepam 2 MG/ML INJ IV STA (16:50)
[2023-05-19] MEDS: SODIUM CHLORIDE 0.9% 1,000 ML IV STA (16:55)
[2023-05-19 17:04] LABS: ALT 18 U/L (4-34); AST 25 U/L (14-36); African American GFR (CKD) >90 (>60 ml/min/1.73 sqM); Alcohol <10 mg/dL; Alkaline Phosphatase 61 U/L (38-126); Anion Gap 10 mmol/L; Blood Urea Nitrogen 13 mg/dL (7-17); Calcium 8.7 mg/dL (8.4-10.2); Carbon Dioxide 20 mmol/L (22-30); Chloride 108 mmol/L (98-107); Glucose 104 mg/dL (74-99); Magnesium 2.2 mg/dL (1.6-2.3); Non-African American GFR(CKD) >90 (>60 ml/min/1.73 sqM); Potassium 3.6 mmol/L (3.5-5.1); Sodium 138 mmol/L (137-145); Total Bilirubin 0.7 mg/dL (0.2-1.3); Total Protein 6.9 g/dL (6.3-8.2)
[2023-05-19 18:25] VITALS: BP 104/65; PULSE 78; TEMP 98.7
--- NOTE | 2023-05-19 20:25 | ED ---
Seizure HPI - General Chief Complaint: Seizure Stated Complaint: SEIZURE Time Seen by Provider: 05/19/23 16:30 Source: patient, EMS Mode of arrival: EMS Limitations: no limitations - History of Present Illness Initial Comments: 28-year-old female brought into the emergency department for seizure. She does have history of seizures. Patient takes Lamictal and sees Dr. Pappas. She has not had a breakthrough seizure in 7 years. States she has been compliant with her medications without any missed doses. She did have a seizure earlier in the day and a second 1 while on the phone with her mom. Mom did call EMS. Upon EMS arrival they found the patient to be postictal. She has no reports of any injury from the seizure. She was not given anything by EMS. She denies any recent head trauma. No visual changes. Admits to mild headache. No concern for . No other alleviating, precipitating modifying factors - Related Data Home Medications Medication Instructions Recorded Confirmed lamoTRIgine [LaMICtal] 200 mg PO BID 12/29/15 05/19/23 Folic Acid 1 mg PO BID 10/18/16 05/19/23 lamoTRIgine [LaMICtal] 100 mg PO BID 10/18/16 05/19/23 lamoTRIgine [LaMICtal] 50 mg PO BID 08/24/17 05/19/23 Medroxyprogesterone Acetate 150 mg IM Q84D 05/19/23 05/19/23 [Depo-Provera] Allergies Allergy/AdvReac Type Severity Reaction Status Date / Time No Known Allergies Allergy Verified 05/19/23 18:24 Review of Systems ROS Statement: Those systems with pertinent positive or pertinent negative responses have been documented in the HPI. ROS Other: All systems not noted in ROS Statement are negative. 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 Past Anesthesia/Blood Transfusion Reactions: No Reported Reaction Past Psychological History: Depression Smoking Status: Former smoker, Vaper Past Alcohol Use History: None Reported Past Drug Use History: None Reported - Past Family History Father Family Medical History: Asthma Mother Family Medical History: Cancer Additional Family Medical History / Comment(s): BREAST CANCER General Exam Limitations: no limitations General appearance: alert, in no apparent distress Head exam: Present: atraumatic, normocephalic, normal inspection Eye exam: Present: normal appearance, PERRL, EOMI. Absent: scleral icterus, conjunctival injection, periorbital swelling ENT exam: Present: normal exam, mucous membranes moist Neck exam: Present: normal inspection. Absent: tenderness, meningismus, lymphadenopathy Respiratory exam: Present: normal lung sounds bilaterally. Absent: respiratory distress, wheezes, rales, rhonchi, stridor Cardiovascular Exam: Present: regular rate, normal rhythm, normal heart sounds. Absent: systolic murmur, diastolic murmur, rubs, gallop, clicks GI/Abdominal exam: Present: soft, normal bowel sounds. Absent: distended, tenderness, guarding, rebound, rigid Extremities exam: Present: normal inspection, full ROM, normal capillary refill. Absent: tenderness, pedal edema, joint swelling, calf tenderness Back exam: Present: normal inspection Neurological exam: Present: alert, oriented X3, CN II-XII intact Psychiatric exam: Present: normal affect, normal mood Skin exam: Present: warm, dry, intact, normal color. Absent: rash Course Vital Signs 05/19/23 05/19/23 16:24 18:17 Temperature 97.7 F 98.7 F Pulse Rate 89 78 Respiratory 17 17 Rate Blood Pressure 107/66 104/65 O2 Sat by Pulse 100 98 Oximetry Medical Decision Making - Medical Decision Making Was pt. sent in by a medical professional or institution (, PA, [employer], urgent care, hospital, or [place] [facility] facility...) When possible be specific @ -No Did you speak to anyone other than the patient for history (EMS, parent, family, police, friend...)? What history was obtained from this source @ -Spoke with EMS who brought the patient in Did you review nursing and triage notes (agree or disagree)? Why? @ -I reviewed and agree with nursing and triage notes Were old charts reviewed (outside hosp., previous admission, EMS record, old EKG, old radiological studies, urgent care reports/EKG's, [place] health care facility records)? Report findings @ -No old charts were reviewed Differential Diagnosis (chest pain, altered mental status, abdominal pain women, abdominal pain men, vaginal bleeding, weakness, fever, dyspnea, syncope, headache, dizziness, GI bleed, back pain, seizure, CVA, palpatations, mental health, musculoskeletal)? @ -Differential Seizure: Recurrent seizure disorder, febrile seizure, alcohol withdrawal, stimulants, meningitis, encephalitis, intercranial hemorrhage, intracranial tumor, stroke, eclampsia, thyrotoxicosis, hypocalcemia, hyponatremia, hypernatremia, hypomagnesemia, psychogenic, this is not meant to be an all-inclusive list. EKG interpreted by me (3pts min.). @ -Yes and demonstrates sinus rhythm with a rate of 78. IN interval 157. QRS 95. QTc of 410. Inverted T wave lead III X-rays interpreted by me (1pt min.). @ -None done CT interpreted by me (1pt min.). @ -None done U/S interpreted by me (1pt. min.). @ -None done What testing was considered but not performed or refused? (CT, X-rays, U/S, labs)? Why? @ -None What meds were considered but not given or refused? Why? @ -None Did you discuss the management of the patient with other professionals (professionals i.e. , PA, [employer], lab, RT, psych nurse, health and social care teacher, underwriting intern, teacher, air antisubmarine officer, case mgr)? Give summary @ -No Was smoking cessation discussed for >3mins.? @ -No Was critical care preformed (if so, how long)? @ -No Were there social determinants of health that impacted care today? How? (H omelessness, low income, unemployed, alcoholism, drug addiction, transportation, low edu. Level, literacy, decrease access to med. care, long-term, rehab)? @ -No Was there de-escalation of care discussed even if they declined (Discuss DNR or withdrawal of care, Hospice)? DNR status @ -No What co-morbidities impacted this encounter? (DM, HTN, Smoking, COPD, CAD, Cancer, CVA, ARF, Chemo, Hep., AIDS, mental health diagnosis, sleep apnea, morbid obesity)? @ -Epilepsy Was patient admitted / discharged? Hospital course, mention meds given and route, prescriptions, significant lab abnormalities, going to OR and other pertinent info. @ -Upon arrival patient was placed into room 6. Thorough history and physical exam was performed. IV access was established. Laboratory studies are conducted. Results are discussed with patient. She has not had any seizure- like activity while in the emergency department. As the patient did have 3 seizures today I did recommend admission for status epilepticus. Patient refused stating that she wants to go home. She is alert and oriented and capable of making her own decisions at this time. Her mother is at bedside and agrees with her decision. Patient will continue taking her antiepileptics as directed unless instructed to alter her dose by her neurologist. Recommend she follow-up with her neurologist for further evaluation. No driving at this time. Patient understood this and was agreeable. Mother is at the bedside to help assist her. Patient discharged with a guarded prognosis Undiagnosed new problem with uncertain prognosis? @ -Yes Drug Therapy requiring intensive monitoring for toxicity (Heparin, Nitro, Insulin, Cardizem)? @ -No Were any procedures done? @ -No Diagnosis/symptom? @ -Acute breakthrough seizure, history of seizure disorder Acute, or Chronic, or Acute on Chronic? @ -Acute Uncomplicated (without systemic symptoms) or Complicated (systemic symptoms)? @ -Complicated Side effects of treatment? @ -No Exacerbation, Progression, or Severe Exacerbation? @ -No Poses a threat to life or bodily function? How? (Chest pain, [place], [place], pneumonia, PE, COPD, DKA, ARF, appy, cholecystitis, CVA, Diverticulitis, Homicidal, Suicidal, threat to staff... and all critical care pts) @ -No - Lab Data Result diagrams: 05/19/23 16:35 05/19/23 16:35 Lab Results 05/19/23 05/19/23 05/19/23 Range/Units 16:35 16:35 16:35 WBC 6.7 (3.8-10.6) k/uL RBC 4.37 (3.80-5.40) m/uL Hgb 13.3 (11.4-16.0) gm/dL Hct 40.3 (34.0-46.0) % MCV 92.2 (80.0-100.0) fL MCH 30.5 (25.0-35.0) pg MCHC 33.1 (31.0-37.0) g/dL RDW 12.9 (11.5-15.5) % Plt Count 235 (150-450) k/uL MPV 7.6 Neutrophils % 69 % Lymphocytes % 21 % Monocytes % 6 % Eosinophils % 3 % Basophils % 0 % Neutrophils # 4.6 (1.3-7.7) k/uL Lymphocytes # 1.4 (1.0-4.8) k/uL Monocytes # 0.4 (0-1.0) k/uL Eosinophils # 0.2 (0-0.7) k/uL Basophils # 0.0 (0-0.2) k/uL Sodium 138 (137-145) mmol/L Potassium 3.6 (3.5-5.1) mmol/L Chloride 108 H (98-107) mmol/L Carbon Dioxide 20 L (22-30) mmol/L Anion Gap 10 mmol/L BUN 13 (7-17) mg/dL Creatinine 0.83 (0.52-1.04) mg/dL Est GFR (CKD-EPI)AfAm >90 (>60 ml/min/1.73 sqM) Est GFR (CKD-EPI)NonAf >90 (>60 ml/min/1.73 sqM) Glucose 104 H (74-99) mg/dL Lactic Ac Sepsis Rflx Plasma Lactic Acid Remy (0.7-2.0) mmol/L Calcium 8.7 (8.4-10.2) mg/dL Magnesium 2.2 (1.6-2.3) mg/dL Total Bilirubin 0.7 (0.2-1.3) mg/dL AST 25 (14-36) U/L ALT 18 (4-34) U/L Alkaline Phosphatase 61 (38-126) U/L Total Protein 6.9 (6.3-8.2) g/dL Albumin 4.0 (3.5-5.0) g/dL Urine Color Colorless Urine Appearance Clear (Clear) Urine pH 5.0 (5.0-8.0) Ur Specific [place] 1.011 (1.001-1.035) Urine Protein Negative (Negative) Urine Glucose (UA) Negative (Negative) Urine Ketones Negative (Negative) Urine Blood Negative (Negative) Urine Nitrite Negative (Negative) Urine Bilirubin Negative (Negative) Urine Urobilinogen <2.0 (<2.0) mg/dL Ur Leukocyte Esterase Negative (Negative) Urine HCG, Qual (Not Detectd) Urine Opiates Screen Not Detected (NotDetected) Ur Oxycodone Screen Not Detected (NotDetected) Urine Methadone Screen Not Detected (NotDetected) Ur Barbiturates Screen Not Detected (NotDetected) Lamotrigine (2.0-15.0) ug/mL U Tricyclic Antidepress Not Detected (NotDetected) Ur Phencyclidine Scrn Not Detected (NotDetected) Ur Amphetamines Screen Not Detected (NotDetected) U Methamphetamines Scrn Not Detected (NotDetected) U Benzodiazepines Scrn Not Detected (NotDetected) Urine Cocaine Screen Not Detected (NotDetected) U Marijuana (THC) Screen Not Detected (NotDetected) Serum Alcohol <10 mg/dL 05/19/23 05/19/23 05/19/23 Range/Units 16:35 16:43 17:35 WBC (3.8-10.6) k/uL RBC (3.80-5.40) m/uL Hgb (11.4-16.0) gm/dL Hct (34.0-46.0) % MCV (80.0-100.0) fL MCH (25.0-35.0) pg MCHC (31.0-37.0) g/dL RDW (11.5-15.5) % Plt Count (150-450) k/uL MPV Neutrophils % % Lymphocytes % % Monocytes % % Eosinophils % % Basophils % % Neutrophils # (1.3-7.7) k/uL Lymphocytes # (1.0-4.8) k/uL Monocytes # (0-1.0) k/uL Eosinophils # (0-0.7) k/uL Basophils # (0-0.2) k/uL Sodium (137-145) mmol/L Potassium (3.5-5.1) mmol/L Chloride (98-107) mmol/L Carbon Dioxide (22-30) mmol/L Anion Gap mmol/L BUN (7-17) mg/dL Creatinine (0.52-1.04) mg/dL Est GFR (CKD-EPI)AfAm (>60 ml/min/1.73 sqM) Est GFR (CKD-EPI)NonAf (>60 ml/min/1.73 sqM) Glucose (74-99) mg/dL Lactic Ac Sepsis Rflx Y Plasma Lactic Acid Remy 2.5 H* (0.7-2.0) mmol/L Calcium (8.4-10.2) mg/dL Magnesium (1.6-2.3) mg/dL Total Bilirubin (0.2-1.3) mg/dL AST (14-36) U/L ALT (4-34) U/L Alkaline Phosphatase (38-126) U/L Total Protein (6.3-8.2) g/dL Albumin (3.5-5.0) g/dL Urine Color Urine Appearance (Clear) Urine pH (5.0-8.0) Ur Specific [place] (1.001-1.035) Urine Protein (Negative) Urine Glucose (UA) (Negative) Urine Ketones (Negative) Urine Blood (Negative) Urine Nitrite (Negative) Urine Bilirubin (Negative) Urine Urobilinogen (<2.0) mg/dL Ur Leukocyte Esterase (Negative) Urine HCG, Qual (Not Detectd) Urine Opiates Screen (NotDetected) Ur Oxycodone Screen (NotDetected) Urine Methadone Screen (NotDetected) Ur Barbiturates Screen (NotDetected) Lamotrigine 4.9 (2.0-15.0) ug/mL U Tricyclic Antidepress (NotDetected) Ur Phencyclidine Scrn (NotDetected) Ur Amphetamines Screen (NotDetected) U Methamphetamines Scrn (NotDetected) U Benzodiazepines Scrn (NotDetected) Urine Cocaine Screen (NotDetected) U Marijuana (THC) Screen (NotDetected) Serum Alcohol mg/dL 05/19/23 05/19/23 Range/Units 20:10 20:24 WBC (3.8-10.6) k/uL RBC (3.80-5.40) m/uL Hgb (11.4-16.0) gm/dL Hct (34.0-46.0) % MCV (80.0-100.0) fL MCH (25.0-35.0) pg MCHC (31.0-37.0) g/dL RDW (11.5-15.5) % Plt Count (150-450) k/uL MPV Neutrophils % % Lymphocytes % % Monocytes % % Eosinophils % % Basophils % % Neutrophils # (1.3-7.7) k/uL Lymphocytes # (1.0-4.8) k/uL Monocytes # (0-1.0) k/uL Eosinophils # (0-0.7) k/uL Basophils # (0-0.2) k/uL Sodium (137-145) mmol/L Potassium (3.5-5.1) mmol/L Chloride (98-107) mmol/L Carbon Dioxide (22-30) mmol/L Anion Gap mmol/L BUN (7-17) mg/dL Creatinine (0.52-1.04) mg/dL Est GFR (CKD-EPI)AfAm (>60 ml/min/1.73 sqM) Est GFR (CKD-EPI)NonAf (>60 ml/min/1.73 sqM) Glucose (74-99) mg/dL Lactic Ac Sepsis Rflx Plasma Lactic Acid Remy 0.7 (0.7-2.0) mmol/L Calcium (8.4-10.2) mg/dL Magnesium (1.6-2.3) mg/dL Total Bilirubin (0.2-1.3) mg/dL AST (14-36) U/L ALT (4-34) U/L Alkaline Phosphatase (38-126) U/L Total Protein (6.3-8.2) g/dL Albumin (3.5-5.0) g/dL Urine Color Urine Appearance (Clear) Urine pH (5.0-8.0) Ur Specific [place] (1.001-1.035) Urine Protein (Negative) Urine Glucose (UA) (Negative) Urine Ketones (Negative) Urine Blood (Negative) Urine Nitrite (Negative) Urine Bilirubin (Negative) Urine Urobilinogen (<2.0) mg/dL Ur Leukocyte Esterase (Negative) Urine HCG, Qual Not Detected (Not Detectd) Urine Opiates Screen (NotDetected) Ur Oxycodone Screen (NotDetected) Urine Methadone Screen (NotDetected) Ur Barbiturates Screen (NotDetected) Lamotrigine (2.0-15.0) ug/mL U Tricyclic Antidepress (NotDetected) Ur Phencyclidine Scrn (NotDetected) Ur Amphetamines Screen (NotDetected) U Methamphetamines Scrn (NotDetected) U Benzodiazepines Scrn (NotDetected) Urine Cocaine Screen (NotDetected) U Marijuana (THC) Screen (NotDetected) Serum Alcohol mg/dL Disposition Clinical Impression: Breakthrough seizure Disposition: HOME SELF-CARE Condition: Stable Instructions (If sedation given, give patient instructions): Seizure/Epilepsy Discharge Instructions & Follow-Up Additional Instructions: Continue taking your seizure medication as directed. Follow-up with Dr. Pappas and return for any new or worsening symptoms Is patient prescribed a controlled substance at d/c from ED?: No Referrals: Kalani Givens MD [Primary Care Provider] - 1-2 days Lolly De Anda MD [REFERRING] - 1-2 days Time of Disposition: 20:49
[2023-05-19 20:33] LABS: Amphetamine Screen,Urine Not Detected (NotDetected); Barbiturate Screen,Urine Not Detected (NotDetected); Benzodiazepines Screen,Urine Not Detected (NotDetected); Cocaine Screen,Urine Not Detected (NotDetected); Methadone Screen, Urine Not Detected (NotDetected); Opiate Screen,Urine Not Detected (NotDetected); Oxycodone Screen, Urine Not Detected (NotDetected); Phencyclidine Screen,Urine Not Detected (NotDetected); Tricyclic Antidepressant,Urine Not Detected (NotDetected); Urn Cannabinoid Scrn Not Detected (NotDetected)
[2023-05-19 20:35] LABS: Appearance,Urine Clear (Clear); Bilirubin,Urine Negative (Negative); Blood,Urine Negative (Negative); Color,Urine Colorless; Glucose,Urine (UA) Negative (Negative); Ketones,Urine Negative (Negative); Leukocyte Esterase,Urine Negative (Negative); Nitrite,Urine Negative (Negative); Protein,Urine Negative (Negative); Specific Gravity,Urine 1.011 (1.001-1.035); Urobilinogen,Urine <2.0 mg/dL (<2.0)
== END 2023-05-19 21:33 | disposition home or self-care (01) ==
LOC: EC 16:18
DX: G40.909 Epilepsy, unspecified, not intractable, without status epilepticus (principal); F17.290 Nicotine dependence, other tobacco product, uncomplicated; Z86.59 Personal history of other mental and behavioral disorders
CPT/HCPCS: 36415; 93005; 80053; 80175; 83605; 83735; 85025; 81003; 81025; 80306; 99285; 96374; 96361; G0480; J2060; 80320